=== PATIENT | male | born 1970 | race Caucasian/White ===

== ENCOUNTER 2018-01-21 08:51 | Inpatient (IN) | payer OTHER, SELFPAY ==
[2018-01-21] MEDS ORDERED: Lorazepam 2 MG/ML VIAL ONE ×2 (09:15→10:56)
[2018-01-21] MEDS ORDERED: Mag-Al 1200 mg/1200 mg/30 ML UDCUP ONE (09:16)
[2018-01-21] MEDS ORDERED: Lidocaine Viscous Sol 2% 15 ml UD Cup ONE (09:16)
[2018-01-21] MEDS ORDERED: Multivitamins, Adult 10 ML, Thiamine HCl 100 MG, Folic Acid 1 MG in Dextrose 5 %-0.45 %... IV SCH (09:30)
[2018-01-21 09:35] LABS: #Lymphocytes 0.9 thou/uL (1.20-3.40); #Monocytes 0.4 thou/uL (0.11-0.59); #Neutrophils 8.7 thou/uL (1.40-6.50); %Basophils 0.2 % (0.0-1.0); %Eosinophils 0.1 % (0.0-10.0); %Lymphocytes 8.5 % (21.0-51.0); %Monocytes 3.8 % (0.0-10.0); %Neutrophils 87.3 % (42.0-75.0); Hemoglobin 12.9 g/dL (14.0-18.0); Mean Corpuscular Hemoglobin 29.2 pg (27.0-31.0); Mean Corpuscular Volume 88.5 fL (78.0-98.0); Mean Platelet Volume 9.2 fL (7.4-10.4); Platelet Count 136 thou/uL (130-400); RBC Distribution Width 15.9 % (11.5-14.5); Red Blood Cell (RBC) Count 4.42 mill/uL (4.70-6.10)
[2018-01-21 09:55] LABS: Band 40 % (5-11); Lymphocytes 11 % (21-51); MDiff Complete? YES; Metamyelocyte 3 % (0-0); Monocytes 3 % (0-10); Neutrophil 42 % (42-75); Stomatocytes MODERATE= 6-15 cells (100X) (0-1/hpf)
[2018-01-21 10:01] LABS: CKMB 6.3 ng/mL (0-6.6)
[2018-01-21 10:02] LABS: ALT (SGPT) 757 U/L (8-55); AST (SGOT) 2751 U/L (5-34); Albumin 3.8 g/dL (3.5-5.0); Alkaline Phosphatase 58 U/L (40-150); Anion Gap 35 mmol/L (10-20); BUN (Urea Nitrogen) 9 mg/dL (8.9-20.6); Bilirubin, Total 4.8 mg/dL (0.2-1.2); Calc. Creatinine Clearance 0 mL/min (70-130); Calcium 7.4 mg/dL (7.8-10.44); Carbon Dioxide 14 mmol/L (22-29); Chloride 83 mmol/L (98-107); Estimated GFR-MDRD 32; Globulin 3.5 g/dL (2.4-3.5); Glucose 169 mg/dL (70-105); Potassium 3.8 mmol/L (3.5-5.1); Protein, Total 7.3 g/dL (6.0-8.3); Sodium 128 mmol/L (136-145)
[2018-01-21 10:13] LABS: Lipase 4177 U/L (8-78)
[2018-01-21 10:23] LABS: Troponin I 0.379 ng/mL (< 0.028)
--- NOTE | 2018-01-21 10:31 | RAD ---
PORTABLE CHEST: Date: 01/21/18 HISTORY: Chest pain. FINDINGS: Lungs appear clear. No infiltrate identified. Heart and mediastinum unremarkable. IMPRESSION: No acute process. POS: [facility]
[2018-01-21] MEDS ORDERED: Piperacillin/Tazobactam 4.5 GM VIAL ONE (10:55)
--- NOTE | 2018-01-21 11:17 | CT ---
CT ABDOMEN AND PELVIS WITHOUT CONTRAST: Date: 01/21/18 Multiple axial tomograms obtained through abdomen and pelvis without IV enhancement. INDICATION: Abdominal pain. Periumbilical pain. No comparison exam. FINDINGS: Lung bases clear. Liver shows low attenuation suggesting hepatic steatosis. The spleen is unremarkable. Pancreas is abnormal. There is peripancreatic inflammatory change. No peripancreatic edema or pseudoc yst seen; however, the findings would suggest pancreatitis. There is evidence of mural thickening and surrounding inflammatory change involving the right colon a nd hepatic flexure. The small bowel loops appear normal. The adrenal glands and kidneys are unremarkable. No hydronephrosis. Urinary bladder unremarkable. Aorta normal caliber. IMPRESSION: Peripancreatic inflammatory change. Inflammatory changes are also seen in the upper mesentery and is especially prominent surrounding the hepatic flexure and right colon. Question mural thickening of th e right colon. Pancreatitis and colitis are considerations. Recommend correlation with pancreatic enz ymes and consider colonoscopy to further evaluate. POS: [facility]
[2018-01-21 12:55] VITALS: BMI 27.5
[2018-01-21] MEDS ORDERED: Lorazepam 2 MG/ML VIAL SLOW IVP PRN (13:44)
[2018-01-21] MEDS ORDERED: Ondansetron ODT 4 MG TAB SL PRN (13:45)
[2018-01-21] MEDS ORDERED: Sodium Chloride 0.9% 1,000 ML IV SCH (13:45)
[2018-01-21] MEDS ORDERED: Ondansetron HCl/PF 4 MG/2 ML Vial IVP PRN (13:45)
[2018-01-21] MEDS ORDERED: Acetaminophen 325 MG TAB PO PRN (13:45)
[2018-01-21 14:28] LABS: Lactic Acid 7.4 mmol/L (0.5-2.2)
[2018-01-21] MEDS: Sodium Chloride 0.9% 1,000 ML IV SCH ×2 (15:05→15:06)
[2018-01-21] MEDS: Multivitamins, Adult 10 ML, Folic Acid 1 MG, Thiamine HCl 100 MG in Dextrose 5 %-0.45 %... IV SCH (15:06)
[2018-01-21] MEDS: Fentanyl 100 MCG/2 ML VIAL SLOW IVP PRN ×3 (15:09→21:52)
[2018-01-21] MEDS: Nicotine 14 MG PATCH TD SCH (15:10)
[2018-01-21 15:28] LABS: Anion Gap 23 mmol/L (10-20); BUN (Urea Nitrogen) 10 mg/dL (8.9-20.6); Calc. Creatinine Clearance 46 mL/min (70-130); Carbon Dioxide 22 mmol/L (22-29); Chloride 89 mmol/L (98-107); Estimated GFR-MDRD 30; Glucose 175 mg/dL (70-105); Sodium 131 mmol/L (136-145)
[2018-01-21 15:30] LABS: Magnesium 0.9 mg/dL (1.6-2.6); Potassium 2.9 mmol/L (3.5-5.1)
[2018-01-21] MEDS ORDERED: Magnesium Sulfate 4 GM in Sodium Chloride 0.9% 250 ML 250 ML IVPB SCH (17:45)
[2018-01-21] MEDS: Potassium Chloride 40 MEQ in Sodium Chloride 0.9% 250 ML 250 ML IVPB SCH ×2 (18:22→21:52)
[2018-01-21] MEDS: Ondansetron HCl/PF 4 MG/2 ML Vial IVP PRN (19:48)
[2018-01-21] MEDS: Famotidine/PF 20 mg/2ml Vial SLOW IVP SCH (19:48)
[2018-01-21] MEDS: Lorazepam 2 MG/ML VIAL SLOW IVP PRN (19:49)
--- NOTE | 2018-01-21 20:59 | CON ---
DATE OF CONSULTATION: 01/21/2018 HISTORY OF PRESENT ILLNESS: Antwan Waddell is a 47-year-old gentleman from [place], [place]. 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 Had s everal day history of severe abdominal pain, nausea, and vomiting, vomited multiple times. He drinks at least a bottle of vodka on a regular basis, 5-6 drinks, drinking for the last 10 years. In the ER, he was found to have markedly elevated lipase. CT abdomen showing evidence of pancreatiti s and colitis. He is now in the MICU, reason for consultation. He denies any difficulty breathing, cough, wheezing or orthopnea. He denies any chills or sweats. Denies any melena or hematochezia. PAST MEDICAL HISTORY: Pertinent mainly for chronic pain, history of alcohol abuse. No history of di abetes. PAST SURGICAL HISTORY: Multiple lumbar fusions, cervical fusion, left knee, appendix, tonsillectomy. SOCIAL HISTORY: As noted, 5 drinks of vodka a day, equal to almost a bottle. No smoking, but chews tobacco. REVIEW OF SYSTEMS: Otherwise, 10-point negative. PHYSICAL EXAMINATION: GENERAL: He is tremulous, awake. VITAL SIGNS: Sats are 95 on room air, pulse 120, blood pressure . CHEST: Decreased breath, no wheezing. CARDIAC: Sinus tachycardia. ABDOMEN: Distended and tender. EXTREMITIES: Revealed no edema. LABORATORY DATA: Shows white count 10,000, ____, platelet 136. Big bandemia, 40 bands, 42 neutrophi ls. Creatinine is 2.2. Lactic acid is 10.6. His lipase was 4177. Chest x-ray was normal. Sodium 128. IMPRESSION: Acute pancreatitis secondary to alcohol abuse and renal failure, electrolyte imbalance, and chronic pain. PLAN: The patient needs IV hydration, fluids, n.p.o., GI consult. Empiric broad-spectrum antibiotic s. We will follow while in the MICU. Consultation note 70 minutes, of which 50 % in direct patient care.
[2018-01-22] MEDS: Fentanyl 100 MCG/2 ML VIAL SLOW IVP PRN ×4 (02:20→22:02)
[2018-01-22] MEDS: Lorazepam 2 MG/ML VIAL SLOW IVP PRN ×3 (02:43→12:15)
[2018-01-22 05:21] LABS: Band 45 % (5-11); Eosinophils 2 % (0-10); Hemoglobin 10.8 g/dL (14.0-18.0); Lymphocytes 8 % (21-51); MDiff Complete? YES; Mean Corpuscular HGB CONC 33.2 g/dL (32.0-36.0); Mean Corpuscular Hemoglobin 29.9 pg (27.0-31.0); Mean Platelet Volume 10.3 fL (7.4-10.4); Monocytes 1 % (0-10); Neutrophil 44 % (42-75); PLT Morphology Comment Appears Decreased; Platelet Count 78 thou/uL (130-400); Red Blood Cell (RBC) Count 3.62 mill/uL (4.70-6.10); Target Cells SLIGHT = 2-5 cells (100X) (0-1/hpf); White Blood Cell (WBC) Count 9.5 thou/uL (4.8-10.8)
[2018-01-22 05:39] LABS: ALT (SGPT) 402 U/L (8-55); AST (SGOT) 882 U/L (5-34); Albumin 3.2 g/dL (3.5-5.0); Alkaline Phosphatase 41 U/L (40-150); Anion Gap 13 mmol/L (10-20); BUN (Urea Nitrogen) 12 mg/dL (8.9-20.6); Bilirubin, Total 7.1 mg/dL (0.2-1.2); Calc. Creatinine Clearance 50 mL/min (70-130); Calcium 6.8 mg/dL (7.8-10.44); Carbon Dioxide 25 mmol/L (22-29); Cardiac Risk TEST NOT PERFORMED (Less than 4.5); Chloride 98 mmol/L (98-107); Cholesterol 102 mg/dl (< 200 Desired); Estimated GFR-MDRD 34; Globulin 2.2 g/dL (2.4-3.5); Glucose 152 mg/dL (70-105); HDL Cholesterol Less than 8 mg/dL (>60 Neg Risk); Lipase Greater than 1000 U/L (8-78); Potassium 3.3 mmol/L (3.5-5.1); Protein, Total 5.4 g/dL (6.0-8.3); Sodium 133 mmol/L (136-145); Triglycerides 178 mg/dL (Less than 150)
[2018-01-22] MEDS: Folic Acid 1 MG TAB PO SCH (08:39)
[2018-01-22] MEDS: Multivitamins, Adult 10 ML, Folic Acid 1 MG, Thiamine HCl 100 MG in Dextrose 5 %-0.45 %... IV SCH (08:40)
[2018-01-22] MEDS ORDERED: Diazepam 5 MG TAB PO SCH (08:45)
[2018-01-22] MEDS ORDERED: Thiamine HCl 200 MG/2 ML VIAL IM SCH (08:45)
--- NOTE | 2018-01-22 10:24 | PDOC.PN ---
- Subjective Encounter Start Date: 01/22/18 Encounter Start Time: 10:22 Sleeping. Sedated. - Objective Resuscitation Status: Resuscitation Status FULL:Full Resuscitation Vital Signs & Weight: Vital Signs (12 hours) Temp Pulse Resp BP BP Pulse Ox 01/22/18 07:26 99.9 F H 134 H 24 H 141/95 H 98 01/22/18 04:00 99.5 F 124 H 24 H 141/80 H 99 01/22/18 00:00 149/95 H 01/21/18 23:00 99.7 F H 136 H 22 H 149/95 H 97 Weight Weight 188 lb 9 oz I&O: 01/21/18 01/22/18 01/23/18 06:59 06:59 06:59 Intake Total 3270 Output Total 250 Balance 3020 Result Diagrams: 01/22/18 04:19 01/22/18 04:19 Phys Exam - Physical Examination Constitutional: NAD Sleeping. Not easily awakened (received bzd) Neck: no JVD Respiratory: no wheezing, no rales, no rhonchi, clear to auscultation bilateral Cardiovascular: RRR, no significant murmur Tachy Gastrointestinal: soft, no distention Musculoskeletal: no edema Sedated Skin: normal turgor Dx/Plan (1) Pancreatitis Code(s): K85.90 - ACUTE PANCREATITIS WITHOUT NECROSIS OR INFECTION, UNSP Status: Acute Plan: Continue supportive care. Has severe poor prognostic indicators (elevated troponin, elevated creatinine, acidosis). Consult GI. Comment: Severe (2) Alcohol withdrawal Code(s): F10.239 - ALCOHOL DEPENDENCE WITH WITHDRAWAL, UNSPECIFIED Status: Acute Plan: Started protocol. (3) NSTEMI (non-ST elevated myocardial infarction) Code(s): I21.4 - NON-ST ELEVATION (NSTEMI) MYOCARDIAL INFARCTION Status: Acute Plan: May be demand ischemia. Rechecking troponin now. May need to consult cardiology, but he is high risk for any interventions at this time. Echo. (4) Acute renal failure Status: Acute Plan: No history of renal insuff., but creat elevated. Very slightly improved. - Plan * Corrected calcium is normal. * As above.
[2018-01-22] MEDS ORDERED: Sodium Chloride 0.45% 1,000 ML IV SCH ×2 (10:45→12:15)
--- NOTE | 2018-01-22 13:20 | PRG ---
DATE OF SERVICE: 01/22/2018 OBJECTIVE: VITAL SIGNS: This morning, his temperature is 99.9, pulse is 130, respiratory rate 24, blood pressur e 141/95. GENERAL: He is awake, responsive. Denies difficulty breathing. CHEST: Decreased breath sounds, no wheezing. CARDIAC: Sinus tachycardia. ABDOMEN: Distended, soft. LABORATORY DATA: He still got a big left shift, 45 bands, 44 segs. White count 9000, H and H 10 and 32. Platelet count is 78, creatinine 2.1, BUN is 12. His AST is 2751 and is down to 882. ALT has decreased to 402. CK-MB is normal. Total CK is only 17 7. His lipase was decreased to 1000. IMPRESSION 1. Acute pancreatitis with big bandemia. 2. Renal failure. 3. Alcoholic hepatitis. PLAN: He may need empiric antibiotics for his pancreatitis, because of big left shift, may consider input from GI. Otherwise, supportive care. I agree with thiamine, folic acid, Valium. We will follow while in the IMCU.
[2018-01-22] MEDS: Sodium Chloride 0.9% 1,000 ML IV SCH ×4 (14:20→20:16)
[2018-01-22] MEDS: Nicotine 14 MG PATCH TD SCH (15:22)
--- NOTE | 2018-01-22 15:47 | CON ---
DATE OF CONSULTATION: 01/22/2018 REASON FOR CONSULTATION: Alcoholic hepatitis and acute pancreatitis. CONSULTING PHYSICIAN: Dr. Umair Ratliff. HISTORY OF PRESENT ILLNESS: The patient is a 47-year-old male with past medical history of alcohol a buse and PTSD presenting with complaints of abdominal pain. He states that he was in his usual state of health until approximately 4-5 days ago when he had the sudden onset of midepigastric/periumbilic al abdominal pain that was characterized as sharp/stabbing in nature, constant with waxing/waning sev erity. It would radiate to the left and right flank, and would reach a severity of 8/10. The pain w as worse with vomiting and increased physical activity, but better with structured exercise and place ment of a hot pad to the midepigastric region. His abdominal pain was also associated with increased nausea and vomiting with a minimal amount of hematemesis characterized primarily as blood within the mouth when he vomited, but not necessarily vomiting of blood. Otherwise, he denies any fevers, chil ls, odynophagia, dysphagia, weight loss, melena or hematochezia. Of note, he does endorse drinking approximately one bottle of vodka daily up until the onset of his a bdominal pain and has been doing this for around the last 10 years. REVIEW OF SYSTEMS: A 10-category review of systems was obtained with all responses negative except f or the pertinent positives as listed in the HPI. PAST MEDICAL HISTORY: As per HPI. PAST SURGICAL HISTORY: Multiple back surgeries, back and knee surgeries, back and neck surgeries, le ft knee surgery, appendectomy, tonsillectomy. FAMILY HISTORY: Denies any GI malignancies. SOCIAL HISTORY: Drinks approximately one bottle of vodka daily. Denies smoking tobacco, but does ch ew tobacco. Denies any illicit drug use. OUTPATIENT MEDICATION: Prazosin. ALLERGIES: SULFA. PHYSICAL EXAMINATION: VITAL SIGNS: Temperature 99.2, pulse 140, blood pressure 159/108, respiratory rate 28, saturating 96 % on room air. GENERAL: The patient is lying in bed in no acute distress, was somnolent during the course of the in terview. Alert and oriented x3. HEENT: Neck is supple. No JVD noted. CARDIOVASCULAR: Tachycardic rate, but regular rhythm. No discernible murmurs, gallops or rubs. RESPIRATORY: Clear to auscultation bilaterally with no discernible wheezes or rales. ABDOMEN: Normoactive bowel sounds, soft, but with some guarding. Mild distention with tympany to pe rcussion. Tenderness to palpation in the midepigastric, periumbilical and right mid abdominal quadra nts. EXTREMITIES: No cyanosis, clubbing or edema. LABORATORY DATA: CBC with white blood cell count of 9.5, hemoglobin 10.8, hematocrit 32.6, platelets 78. Chemistry with sodium 133, potassium 3.3, chloride 98, CO2 25, BUN 12, creatinine 2.11, glucose 152, AST 882, ALT 402, alkaline phosphatase 41, total bilirubin 7.1, albumin 3.2, lipase 4177, trigl ycerides 178, her creatine kinase 177, troponins 0.379, BISAP score of 2. IMAGING DATA: CT of the abdomen and pelvis showed probable hepatic steatosis with low attenuation of the liver, normal spleen, but there was also peripancreatic inflammatory change, but no associated p eripancreatic edema or pseudocyst formation. There was also mural thickening and surrounding inflamm atory change involving the right colon and hepatic flexure. ASSESSMENT AND PLAN: The patient is a 47-year-old male with past medical history of alcohol abuse an d PTSD, presenting with acute alcoholic hepatitis and acute pancreatitis. ALCOHOLIC HEPATITIS: The patient is presenting with a longstanding history of alcohol abuse, drinkin g approximately one bottle of vodka daily for the last 10 years. Upon admission, his liver function tests are consistent with alcoholic hepatitis with AST predominance over ALT in 2:1 distribution. Th is is also associated with an increased total bilirubin of 7.1 indicating some liver dysfunction. Ba sed on his current elevation, I would characterize his alcoholic hepatitis as mild to moderate; howev er, with recent studies showing lack of efficacy with either pentoxifylline or steroid administration , conservative management is more appropriate at this particular point in time. RECOMMENDATIONS: 1. We would continue to trend LFTs daily as well as INR for changes in liver function. 2. Continue to monitor for signs of hepatic encephalopathy which may be a harbinger of worsening hep atic function. 3. Continue to monitor conservatively with IV fluid administration. PANCREATITIS: The patient is presenting with acute onset of midepigastric/periumbilical abdominal pa in approximately 4-5 days ago. This pain is characterized as a sharp/stabbing type pain that is cons tant with waxing/waning severity, radiates to his bilateral abdominal flanks and would reach a severi ty of 8/10. Currently, he states his pain is under much better control with administration of IV med ications. Upon admission to the [facility] ER, he has imaging consistent with acute pancreatitis a s well as a significantly elevated lipase at 4177 consistent with his diagnosis. At this time per BI SAP score, the severity of his pancreatitis could be considered mild to moderate especially in light of end organ damage as evidenced by an elevated creatinine. At this time, he needs aggressive fluid administration for prevention of inflammatory sciatic lines causing a fulminant cascade and ending in third spacing of fluid and kidney failure and/or fulminant hepatic failure. RECOMMENDATIONS: 1. Would place patient on normal saline at 250 mL per hour over the next 8 hours, then decrease to 2 00 mL per hour for the next 16 hours as part of IV fluid resuscitation. 2. Continue to monitor clinically for signs of third spacing and/or hypotension. 3. Would keep patient n.p.o. for now, but would consider advancing diet within the next 24-48 hours. 4. Pain control per primary team. 5. I agree with placing the patient on withdrawal protocol given his extensive alcohol abuse in the past. We will continue to monitor. Please call with any questions.
[2018-01-22] MEDS: Ondansetron ODT 4 MG TAB PO PRN (18:03)
[2018-01-22] MEDS: Diazepam 5 MG TAB PO PRN (20:15)
[2018-01-22] MEDS: Famotidine/PF 20 mg/2ml Vial SLOW IVP SCH (20:15)
[2018-01-23] MEDS: Diazepam 5 MG TAB PO PRN (00:05)
[2018-01-23] MEDS: Sodium Chloride 0.9% 1,000 ML IV SCH ×5 (01:32→19:54)
[2018-01-23] MEDS ORDERED: Diazepam 5 MG TAB PO PRN (04:00)
[2018-01-23 05:27] LABS: INR-International Normal Ratio 1.3; Prothrombin Time 16.6 SEC (12.0-14.7)
[2018-01-23 06:03] LABS: Band 33 % (5-11); Hemoglobin 9.7 g/dL (14.0-18.0); Lymphocytes 11 % (21-51); MDiff Complete? YES; Mean Corpuscular HGB CONC 32.8 g/dL (32.0-36.0); Mean Corpuscular Hemoglobin 29.6 pg (27.0-31.0); Mean Corpuscular Volume 90.3 fL (78.0-98.0); Mean Platelet Volume 9.9 fL (7.4-10.4); Monocytes 3 % (0-10); Neutrophil 53 % (42-75); PLT Morphology Comment Appears Decreased; Platelet Count 92 thou/uL (130-400); Red Blood Cell (RBC) Count 3.27 mill/uL (4.70-6.10); White Blood Cell (WBC) Count 9.4 thou/uL (4.8-10.8)
[2018-01-23 06:07] LABS: ALT (SGPT) 247 U/L (8-55); AST (SGOT) 362 U/L (5-34); Albumin 2.9 g/dL (3.5-5.0); Alkaline Phosphatase 133 U/L (40-150); Anion Gap 11 mmol/L (10-20); BUN (Urea Nitrogen) 8 mg/dL (8.9-20.6); Bilirubin, Total 8.4 mg/dL (0.2-1.2); Calc. Creatinine Clearance 107 mL/min (70-130); Calcium 6.9 mg/dL (7.8-10.44); Carbon Dioxide 30 mmol/L (22-29); Chloride 100 mmol/L (98-107); Estimated GFR-MDRD 77; Globulin 2.1 g/dL (2.4-3.5); Glucose 86 mg/dL (70-105); Sodium 138 mmol/L (136-145)
[2018-01-23] MEDS: Fentanyl 100 MCG/2 ML VIAL SLOW IVP PRN ×6 (08:02→23:25)
[2018-01-23] MEDS: Enoxaparin Sodium 40 MG/0.4 ML SYRINGE SC SCH (09:10)
[2018-01-23] MEDS: Ondansetron HCl/PF 4 MG/2 ML Vial IVP PRN ×2 (09:10→15:22)
[2018-01-23] MEDS: Folic Acid 1 MG TAB PO SCH (09:10)
[2018-01-23] MEDS: Magnesium Oxide 400 MG TAB PO SCH (09:10)
[2018-01-23] MEDS: Lorazepam 2 MG/ML VIAL SLOW IVP PRN ×3 (09:12→22:09)
--- NOTE | 2018-01-23 09:33 | PRG ---
DATE OF SERVICE: 01/23/2018 This morning, the patient is awake, alert, responsive. He is better, less abdominal pain. He was le ss tachycardic. PHYSICAL EXAMINATION: VITAL SIGNS: Temperature 99, pulse 112, respirations 24, blood pressure 145/102. CHEST: Chest reveals decreased breath sounds, no wheezing. CARDIAC: Normal S1, S2, no gallops. ABDOMEN: Soft, no masses. LABORATORY: His AST has decreased to 362. White count 9000, H&H 9 and 27, platelet count is 292. IMPRESSION: 1. Alcohol hepatitis. 2. Pancreatitis. PLAN: Continue supportive care. GI on board. He is NPO. We will follow while in the IMCU.
--- NOTE | 2018-01-23 10:00 | PRG ---
DATE OF SERVICE: 01/23/2018 REASON FOR CONSULTATION: Alcoholic hepatitis and acute pancreatitis SUBJECTIVE: The patient did well overnight with no acute events or problems. This morning he states that he continues to have midepigastric abdominal pain that is unchanged from yesterday. He has not had a bowel movement since he has been here in the hospital and is getting a little hungry as part o f treatment. Currently, denies any nausea, vomiting, fevers, chills or GI bleeding. OBJECTIVE: VITAL SIGNS: Temperature 99.6, pulse 112, blood pressure 145/102, respiratory rate 24, satting 98% o n room air. GENERAL: The patient lying in bed in no acute distress. He is alert and oriented x4, although speec h is somewhat delayed and quiet. CARDIOVASCULAR: Tachycardic rate, but regular rhythm. RESPIRATORY: Clear to auscultation bilaterally. ABDOMEN: Normoactive bowel sounds, soft, minimal distention with tympany to percussion. Tenderness to palpation in the midepigastric and periumbilical regions. LABORATORY DATA: CBC with a white blood cell count of 9.4, hemoglobin 9.7, hematocrit 29.5, platelet s 92. Chemistry with a sodium 138, potassium is 3, chloride 100, CO2 30, BUN 8, creatinine 1.03. IN R 1.3, AST 362, ALT 247, alkaline phosphatase 133, total bilirubin 8.4, albumin 2.9. IMAGING DATA: No current GI imaging is available for review. ASSESSMENT AND PLAN: The patient is a 47-year-old male with past medical history of alcohol abuse an d post-traumatic stress disorder, presenting with acute alcoholic hepatitis and acute pancreatitis. Alcoholic hepatitis. The patient is presenting with a longstanding history of alcohol abuse, drinking approximately one diogenes ttle of vodka daily for the last 10 years. On admission, he was noted to have a significantly high A ST and ALT in primarily a 2:1 distribution consistent with alcoholic hepatitis. He does continue to have an elevated total bilirubin as well indicating liver dysfunction; however, on review of his labs today, his AST and ALT have decreased significantly and I hope that his total bilirubin will be foll owing shortly thereafter. At this time, I would characterize his alcoholic hepatitis as mild to mode rate and will continue more conservative management at this time. RECOMMENDATIONS: 1. Would continue to trend LFTs daily as well as INR for assessment of hepatic function. 2. Continue to monitor for any signs of hepatic encephalopathy which may be a harbinger of worsening hepatic function. 3. Would hold on administration of steroids or pentoxifylline given their lack of efficacy on carmen turlatisha. Pancreatitis. The patient is presenting with an acute onset of midepigastric/periumbilical abdominal pain for the 4 -5 days prior to admission. On admission, he had imaging consistent with acute pancreatitis as well as a significantly elevated lipase at 4177 consistent with this diagnosis. Currently, he has respond ed well to IV fluid resuscitation receiving approximately 3-4 liters within the last 24 hours, as thomas denced by improvement in both his BUN and creatinine, continued IV fluid administration is indicated, but may be decreased for fear of fluid overload and in light of recent NSTEMI. RECOMMENDATIONS: 1. We will decrease the patient to normal saline at 150 mL per hour as part of IV fluid resuscitatio n for acute pancreatitis. 2. Keep the patient n.p.o. for now, but would consider advancing his diet to a clear liquid diet wit hin the next 24 hours. 3. Pain control per primary team. 4. Would continue alcohol withdrawal protocol given his significant alcohol abuse in the past. We will continue to follow. Please call with any questions.
[2018-01-23] MEDS: Multivitamins, Adult 10 ML, Folic Acid 1 MG, Thiamine HCl 100 MG in Dextrose 5 %-0.45 %... IV SCH (11:01)
[2018-01-23] MEDS: Famotidine/PF 20 mg/2ml Vial SLOW IVP SCH (20:22)
--- NOTE | 2018-01-23 21:44 | PDOC.PN ---
- Subjective Encounter Start Date: 01/23/18 Encounter Start Time: 14:00 PAtient is s4en today, along with Family memebers at Bedside, pt admitted with Alcohol intoxication with Acute pancreatitis, persistant pain 9/10 intesity on fentanyl - Objective Resuscitation Status: Resuscitation Status FULL:Full Resuscitation MAR Reviewed: Yes Vital Signs & Weight: Vital Signs (12 hours) Temp Pulse Resp BP Pulse Ox 01/23/18 20:00 99.6 F 107 H 20 137/84 98 01/23/18 19:50 101.0 F H 127 H 15 143/91 H 97 01/23/18 15:27 99.0 F 107 H 20 152/102 H 99 01/23/18 11:31 100.2 F H 12 L 21 H 144/100 H 99 Weight Weight 194 lb 7 oz I&O: 01/22/18 01/23/18 01/24/18 06:59 06:59 06:59 Intake Total 3270 4783.0 Output Total 250 2100 2775 Balance 3020 2683.0 -2775 Result Diagrams: 01/23/18 04:30 01/23/18 04:30 Radiology Reviewed by me: Yes EKG Reviewed by me: Yes Phys Exam - Physical Examination HEENT: PERRLA, moist MMs Neck: no nodes, no JVD Respiratory: no wheezing, no rales Cardiovascular: RRR, no significant murmur Gastrointestinal: positive bowel sounds Tender Abdomen generalized. No guarding Musculoskeletal: no edema, pulses present Neurological: non-focal, normal sensation Psychiatric: normal affect, A&O x 3 Skin: no rash, normal turgor Dx/Plan (1) Sepsis Code(s): A41.9 - SEPSIS, UNSPECIFIED ORGANISM Status: Acute Comment: Will continue to Monitro, pt is Having fevers, Abdominal pain, GI is Following, if persistant will plan to evalaute the Gallbladder. (2) Moderate dehydration Code(s): E86.0 - DEHYDRATION Status: Acute Comment: Will continue with IV fluids. 125ml/hr (3) Acute renal failure Status: Acute Comment: Likely from Dehydration or vomitings. Now Improving with IV fluids (4) Alcohol withdrawal Code(s): F10.239 - ALCOHOL DEPENDENCE WITH WITHDRAWAL, UNSPECIFIED Status: Acute Comment: WIll closley Monitor for Withdrawls with Ativan (5) Pancreatitis Code(s): K85.90 - ACUTE PANCREATITIS WITHOUT NECROSIS OR INFECTION, UNSP Status: Acute Comment: Severe, Likely from Alcohol - Plan * . Review of Systems - Review of Systems Constitutional: negative: fever, chills, sweats, weakness, malaise, other Eyes: negative: Pain, Vision Change, Conjunctivae Inflammation, Eyelid Inflammation, Redness, Other ENT: negative: Ear Pain, Ear Discharge, Nose Pain, Nose Discharge, Nose Congestion, Mouth Pain, Mouth Swelling, Throat Pain, Throat Swelling, Other Respiratory: negative: Cough, Dry, Shortness of Breath, Hemoptysis, SOB with Excertion, Pleuritic Pain, Sputum, Wheezing Cardiovascular: negative: chest pain, palpitations, orthopnea, paroxysmal nocturnal dyspnea, edema, light headedness, other Gastrointestinal: Nausea, Abdominal Pain, Constipation Genitourinary: negative: Dysuria, Frequency, Incontinence, Hematuria, Retention , Other Musculoskeletal: negative: Neck Pain, Shoulder Pain, Arm Pain, Back Pain, Hand Pain, Leg Pain, Foot Pain, Other Skin: negative: Rash, Lesions, Freddy, Bruising, Other - Medications/Allergies Allergies/Adverse Reactions: Allergies Allergy/AdvReac Type Severity Reaction Status Date / Time Sulfa (Sulfonamide Allergy Intermediate Rash Verified 01/21/18 09:25 Antibiotics) Medications: Current Medications Diazepam (Valium) 5 mg PO Q4H PRN PRN Reason: FOR ASE 10 OR GREATER Enoxaparin Sodium (Lovenox) 40 mg SC 0900 [facility] Last Admin: 01/23/18 09:10 Dose: 40 mg Famotidine (Pepcid) 20 mg SLOW IVP 2100 [facility] Last Admin: 01/23/18 20:22 Dose: 20 mg Fentanyl (Sublimaze) 25 mcg SLOW IVP Q2H PRN PRN Reason: Severe Pain (7-10) Last Admin: 01/23/18 19:37 Dose: 25 mcg Folic Acid (Folvite) 1 mg PO DAILY [facility] Last Admin: 01/23/18 09:10 Dose: 1 mg Multivitamins 10 ml/ Folic Acid 1 mg/ Thiamine HCl 100 mg / Dextrose/Sodium Chloride 1,011.2 mls @ 150 mls/hr IV 0900 [facility] Last Admin: 01/23/18 11:01 Dose: 1,011.2 mls Sodium Chloride (Normal Saline 0.9%) 1,000 mls @ 150 mls/hr IV .Q6H40M [facility] Last Admin: 01/23/18 19:54 Dose: 1,000 mls Lorazepam (Ativan) 1 mg SLOW IVP Q4H PRN PRN Reason: Anxiety/Agitation Last Admin: 01/23/18 13:15 Dose: 1 mg Magnesium Oxide (Magnesium Oxide) 400 mg PO DAILY [facility] Last Admin: 01/23/18 09:10 Dose: 400 mg Ondansetron HCl (Zofran Odt) 4 mg PO Q6H PRN PRN Reason: Nausea/Vomiting Last Admin: 01/22/18 18:03 Dose: 4 mg Ondansetron HCl (Zofran) 4 mg IVP Q6H PRN PRN Reason: Nausea/Vomiting Last Admin: 01/23/18 15:22 Dose: 4 mg Sodium Chloride (Flush - Normal Saline) 10 ml IVF Q12HR [facility] Last Admin: 01/23/18 20:22 Dose: 10 ml Sodium Chloride (Flush - Normal Saline) 10 ml IVF PRN PRN PRN Reason: Saline Flush Thiamine HCl (Thiamine) 100 mg PO DAILY [facility] Last Admin: 01/23/18 09:10 Dose: 100 mg
[2018-01-24] MEDS: Fentanyl 100 MCG/2 ML VIAL SLOW IVP PRN ×4 (02:52→12:17)
[2018-01-24] MEDS: Ondansetron HCl/PF 4 MG/2 ML Vial IVP PRN ×3 (03:02→19:15)
[2018-01-24] MEDS: Sodium Chloride 0.9% 1,000 ML IV SCH ×3 (03:13→19:15)
[2018-01-24] MEDS ORDERED: Baclofen 10 MG TAB PO PRN (08:12)
[2018-01-24] MEDS: Folic Acid 1 MG TAB PO SCH (08:30)
[2018-01-24] MEDS: Magnesium Oxide 400 MG TAB PO SCH (08:30)
[2018-01-24 08:31] LABS: ALT (SGPT) 163 U/L (8-55); AST (SGOT) 155 U/L (5-34); Albumin 2.8 g/dL (3.5-5.0); Alkaline Phosphatase 225 U/L (40-150); Anion Gap 13 mmol/L (10-20); BUN (Urea Nitrogen) 6 mg/dL (8.9-20.6); Bilirubin, Total 5.4 mg/dL (0.2-1.2); Calc. Creatinine Clearance 155 mL/min (70-130); Calcium 6.9 mg/dL (7.8-10.44); Carbon Dioxide 28 mmol/L (22-29); Chloride 101 mmol/L (98-107); Estimated GFR-MDRD Greater than 90; Globulin 2.6 g/dL (2.4-3.5); Glucose 86 mg/dL (70-105); Protein, Total 5.4 g/dL (6.0-8.3); Sodium 139 mmol/L (136-145)
[2018-01-24] MEDS: Enoxaparin Sodium 40 MG/0.4 ML SYRINGE SC SCH (08:31)
--- NOTE | 2018-01-24 08:40 | PRG ---
DATE OF SERVICE: 01/24/2018 REASON FOR CONSULTATION: Alcoholic hepatitis and acute pancreatitis. SUBJECTIVE: The patient states that he had increased pain yesterday despite as needed use of IV fent anyl. This morning he says that his pain continues to give him significant discomfort primarily with in the mid epigastric region and radiating to the entire generalized abdomen. He also continues to h ave hiccups which he states further exacerbates his pain. He is getting more hungry and is amenable to attempting to eat some food later on today. He does have some mild nausea associated with increas ed abdominal pain and the hiccups, but does not have any actual emesis. He did have a solid bowel mo vement yesterday with no difficulty with defecation. Currently, denies any vomiting or GI bleeding. Of note, he did complain of subjective fevers yesterday with a T-max of 101 yesterday. OBJECTIVE: VITAL SIGNS: Temperature 98.7, pulse 122, blood pressure 149/102, respiratory rate 18, satting 97% o n room air. GENERAL: The patient is lying in bed in no acute distress. He is alert and oriented x4. CARDIOVASCULAR: Tachycardic rate, but regular rhythm. RESPIRATORY: Clear to auscultation bilaterally. ABDOMEN: Normoactive bowel sounds, soft, nondistended. Tenderness to palpation in all abdominal didi drants. EXTREMITIES: No cyanosis, clubbing or edema. LABORATORY DATA: No current studies were available for review at the time of this dictation. IMAGING STUDIES: No current GI imaging studies are available for review. ASSESSMENT AND PLAN: The patient is a 47-year-old male with past medical history of alcohol abuse an d posttraumatic stress disorder presenting with acute alcoholic hepatitis and acute pancreatitis. Alcoholic hepatitis. The patient initially presenting with a longstanding history of alcohol abuse, drinking approximately one bottle of vodka daily for the last 10 years. On admission, he was noted t o have significantly elevated transaminases in 2:1 distribution consistent with alcoholic hepatitis. He did also have elevated total bilirubin, indicating possible liver dysfunction. He did have down trending labs yesterday indicative of response to treatment, but no labs are available for review lala pelaez. RECOMMENDATIONS: 1. Would continue to trend LFTs daily as well as INR for assessment of hepatic function. I will dra best a comprehensive metabolic profile at this time to ascertain today's liver function. 2. Continue to monitor for signs of hepatic encephalopathy which may be a harbinger of worsening hep atic function. 3. We will continue to hold on steroids or pentoxifylline given the lack of efficacy in literature s tudies. 4. Agree with placing the patient on alcohol withdrawal protocol given his increase in the above sym ptoms. Pancreatitis. The patient is presenting with acute onset of mid epigastric/periumbilical abdominal pain 4-5 days pr ior to admission. On admission, he had imaging consistent with acute pancreatitis as well as signifi cantly elevated lipase at 4177, consistent with the diagnosis. He was responding well to IV fluid re suscitation with both his BUN and creatinine returning to normal. However, over the last 24 hours he has been having subjective fevers and a T-max of 101, which may be indicative of infective pancreati tis. If these fevers continue he may need further evaluation for infective pancreatitis. RECOMMENDATIONS: 1. Would continue the patient on normal saline at 150 mL per hour as part of IV fluid resuscitation for acute pancreatitis. 2. Would advance the patient's diet to clear liquids and assess for tolerance. 3. We would consult Anesthesia Service for possible CHILDREN LIBRARIAN pump for adequate pain management in acute p ancreatitis. 4. If the patient continues to have fevers, I would reimage his belly with a CT abdomen and pelvis l ooking for infected pancreatitis. If it is indicative of infective pancreatitis, the patient will ne ed a CT guided biopsy of the region to further guide antibiotic therapy. We will continue to follow. Please call with any questions.
[2018-01-24 08:41] LABS: Potassium 2.8 mmol/L (3.5-5.1)
--- NOTE | 2018-01-24 08:55 | PRG ---
DATE OF SERVICE: 01/24/2018 This morning he is still having abdominal pain with nausea and vomiting. PHYSICAL EXAMINATION: VITAL SIGNS: Still tachycardic rate of 122, temperature 98, respiration rate 18, sats are 90% on suzan m air, blood pressure 149/102. CHEST: Chest revealed decreased breath sounds without any wheezing. CARDIAC: Sinus tachycardia. ABDOMEN: Distended, soft and tender. LABORATORY: His bilirubin is 5.4. His AST is 155, decreased. IMPRESSION: 1. Hepatitis. 2. Alcoholic pancreatitis. PLAN: Continue n.p.o., supportive care. PT and supportive care. I will follow.
[2018-01-24] MEDS: Potassium Chloride 20 MEQ in Premix Bag 1 BAG IVPB SCH ×2 (11:07→12:21)
[2018-01-24] MEDS: Multivitamins, Adult 10 ML, Folic Acid 1 MG, Thiamine HCl 100 MG in Dextrose 5 %-0.45 %... IV SCH (11:41)
--- NOTE | 2018-01-24 17:04 | PDOC.PN ---
- Subjective Encounter Start Date: 01/24/18 Encounter Start Time: 15:00 Patient is seen today, C/o severe abdnominal pain. He is Wanting Pain management to do Nerve block. - Objective Resuscitation Status: Resuscitation Status FULL:Full Resuscitation MAR Reviewed: Yes Vital Signs & Weight: Vital Signs (12 hours) Temp Pulse Resp BP BP Pulse Ox 01/24/18 16:00 152/104 H 01/24/18 15:24 98.2 F 121 H 13 152/104 H 97 01/24/18 12:00 148/100 H 01/24/18 11:29 97.9 F 114 H 20 148/100 H 93 L 01/24/18 08:00 149/102 H 01/24/18 07:48 98.7 F 122 H 18 99 01/24/18 07:39 98.7 F 122 H 18 149/102 H 97 Weight Weight 192 lb 12.8 oz I&O: 01/23/18 01/24/18 01/25/18 06:59 06:59 06:59 Intake Total 4783.0 2150 Output Total 2100 5675 2049 Balance 2683.0 -352 Result Diagrams: 01/23/18 04:30 01/24/18 08:00 Radiology Reviewed by me: Yes EKG Reviewed by me: Yes Phys Exam - Physical Examination HEENT: PERRLA, moist MMs Neck: no nodes, no JVD Respiratory: no wheezing, no rales Cardiovascular: RRR, no significant murmur Gastrointestinal: no distention, positive bowel sounds Musculoskeletal: no edema, pulses present Dx/Plan (1) Sepsis Code(s): A41.9 - SEPSIS, UNSPECIFIED ORGANISM Status: Acute Comment: Will continue to Monitro, pt is Having fevers, Abdominal pain, GI is Following, if persistant will plan to evalaute the Gallbladder. (2) Moderate dehydration Code(s): E86.0 - DEHYDRATION Status: Acute Comment: Will continue with IV fluids. 125ml/hr (3) Acute renal failure Status: Acute Comment: Likely from Dehydration or vomitings. Now Improving with IV fluids (4) Alcohol withdrawal Code(s): F10.239 - ALCOHOL DEPENDENCE WITH WITHDRAWAL, UNSPECIFIED Status: Acute Comment: [facility]ls with Ativan (5) Pancreatitis Code(s): K85.90 - ACUTE PANCREATITIS WITHOUT NECROSIS OR INFECTION, UNSP Status: Acute Comment: Severe, Likely from Alcohol (6) Elevated liver enzymes Code(s): R74.8 - ABNORMAL LEVELS OF OTHER SERUM ENZYMES Status: Acute Comment: Will do US Gallblader r/o Cholecystitis. - Plan cont current plan of care, continue antibiotics, PT/OT, social service assistant, incentive spirometry, DVT proph w/lovenox * . Review of Systems - Review of Systems Constitutional: weakness, malaise Eyes: negative: Pain, Vision Change, Conjunctivae Inflammation, Eyelid Inflammation, Redness, Other ENT: negative: Ear Pain, Ear Discharge, Nose Pain, Nose Discharge, Nose Congestion, Mouth Pain, Mouth Swelling, Throat Pain, Throat Swelling, Other Respiratory: negative: Cough, Dry, Shortness of Breath, Hemoptysis, SOB with Excertion, Pleuritic Pain, Sputum, Wheezing Cardiovascular: negative: chest pain, palpitations, orthopnea, paroxysmal nocturnal dyspnea, edema, light headedness, other Gastrointestinal: Nausea, Vomiting, Abdominal Pain Genitourinary: negative: Dysuria, Frequency, Incontinence, Hematuria, Retention , Other Musculoskeletal: negative: Neck Pain, Shoulder Pain, Arm Pain, Back Pain, Hand Pain, Leg Pain, Foot Pain, Other - Medications/Allergies Allergies/Adverse Reactions: Allergies Allergy/AdvReac Type Severity Reaction Status Date / Time Sulfa (Sulfonamide Allergy Intermediate Rash Verified 01/21/18 09:25 Antibiotics) Medications: Current Medications Baclofen (Lioresal) 10 mg PO BID PRN PRN Reason: Hiccups Last Admin: 01/24/18 11:07 Dose: 10 mg Diazepam (Valium) 5 mg PO Q4H PRN PRN Reason: FOR ASE 10 OR GREATER Enoxaparin Sodium (Lovenox) 40 mg SC 0900 [facility] Last Admin: 01/24/18 08:31 Dose: 40 mg Famotidine (Pepcid) 20 mg SLOW IVP 2100 [facility] Last Admin: 01/23/18 20:22 Dose: 20 mg Folic Acid (Folvite) 1 mg PO DAILY [facility] Last Admin: 01/24/18 08:30 Dose: 1 mg Multivitamins 10 ml/ Folic Acid 1 mg/ Thiamine HCl 100 mg / Dextrose/Sodium Chloride 1,011.2 mls @ 150 mls/hr IV 0900 [facility] Last Admin: 01/24/18 11:41 Dose: 1,011.2 mls Sodium Chloride (Normal Saline 0.9%) 1,000 mls @ 150 mls/hr IV .Q6H40M [facility] Last Admin: 01/24/18 11:07 Dose: 1,000 mls Lorazepam (Ativan) 1 mg SLOW IVP Q4H PRN PRN Reason: Anxiety/Agitation Last Admin: 01/23/18 22:09 Dose: 1 mg Magnesium Oxide (Magnesium Oxide) 400 mg PO DAILY [facility] Last Admin: 01/24/18 08:30 Dose: 400 mg Morphine Sulfate (Morphine) 3 mg SLOW IVP Q4H PRN PRN Reason: Severe Pain (7-10) Last Admin: 01/24/18 16:45 Dose: 3 mg Ondansetron HCl (Zofran Odt) 4 mg PO Q6H PRN PRN Reason: Nausea/Vomiting Last Admin: 01/22/18 18:03 Dose: 4 mg Ondansetron HCl (Zofran) 4 mg IVP Q6H PRN PRN Reason: Nausea/Vomiting Last Admin: 01/24/18 11:40 Dose: 4 mg Sodium Chloride (Flush - Normal Saline) 10 ml IVF Q12HR [facility] Last Admin: 01/24/18 08:31 Dose: 10 ml Sodium Chloride (Flush - Normal Saline) 10 ml IVF PRN PRN PRN Reason: Saline Flush Last Admin: 01/24/18 05:46 Dose: 10 ml Thiamine HCl (Thiamine) 100 mg PO DAILY [facility] Last Admin: 01/24/18 08:30 Dose: 100 mg
[2018-01-24] MEDS: Famotidine/PF 20 mg/2ml Vial SLOW IVP SCH (19:15)
--- NOTE | 2018-01-24 19:19 | ULT ---
ULTRASOUND GALLBLADDER RIGHT UPPER QUADRANT: 01/24/18 HISTORY: Abdominal pain. COMPARISON: CT from 01/21/18. FINDINGS: Real time ly scale and color evaluation of the right upper quadrant of the abdomen was performed. T here appears to be some fluid around the pancreatic head. The hepatic echotexture is coarsened. Liver is enlarged measuring over 21 cm. Gallbladder wall thickness is normal. Portal vein is patent. Antegrade flow. Common bile duct measures 6 mm. Normal gallbladder wall thickness. Right kidney measures 10.6 x 5.9 x 6.8 cm without mass, hydronephrosis or abnormal calcifications. IMPRESSION: 1. Common bile duct size is upper limits of normal without visualized choledocholithiasis. 2. Hepatomegaly with steatosis. 3. Small volume fluid around the pancreatic head suggesting pancreatitis. POS: PETERH
[2018-01-25] MEDS: Sodium Chloride 0.9% 1,000 ML IV SCH ×3 (02:05→20:00)
[2018-01-25] MEDS: Magnesium Oxide 400 MG TAB PO SCH (08:32)
[2018-01-25] MEDS: Lorazepam 2 MG/ML VIAL SLOW IVP PRN ×2 (08:32)
[2018-01-25] MEDS: Folic Acid 1 MG TAB PO SCH (08:32)
[2018-01-25] MEDS: Enoxaparin Sodium 40 MG/0.4 ML SYRINGE SC SCH (08:33)
[2018-01-25] MEDS: Multivitamins, Adult 10 ML, Folic Acid 1 MG, Thiamine HCl 100 MG in Dextrose 5 %-0.45 %... IV SCH (09:17)
[2018-01-25 09:26] LABS: Mean Corpuscular HGB CONC 31.4 g/dL (32.0-36.0); Mean Corpuscular Hemoglobin 28.7 pg (27.0-31.0); Mean Corpuscular Volume 91.3 fL (78.0-98.0); Mean Platelet Volume 9.2 fL (7.4-10.4); Platelet Count 160 thou/uL (130-400); RBC Distribution Width 17.1 % (11.5-14.5); Red Blood Cell (RBC) Count 3.49 mill/uL (4.70-6.10); White Blood Cell (WBC) Count 5.7 thou/uL (4.8-10.8)
[2018-01-25 09:36] LABS: ALT (SGPT) 125 U/L (8-55); AST (SGOT) 83 U/L (5-34); Alkaline Phosphatase 195 U/L (40-150); Anion Gap 11 mmol/L (10-20); BUN (Urea Nitrogen) 4 mg/dL (8.9-20.6); Bilirubin, Total 3.5 mg/dL (0.2-1.2); Calc. Creatinine Clearance 164 mL/min (70-130); Calcium 7.3 mg/dL (7.8-10.44); Carbon Dioxide 27 mmol/L (22-29); Chloride 103 mmol/L (98-107); Estimated GFR-MDRD Greater than 90; Globulin 2.8 g/dL (2.4-3.5); Glucose 83 mg/dL (70-105); Protein, Total 5.8 g/dL (6.0-8.3); Sodium 138 mmol/L (136-145)
[2018-01-25 09:40] LABS: Potassium 2.9 mmol/L (3.5-5.1)
[2018-01-25] MEDS ORDERED: Potassium Phosphate 15 MMOL in Sodium Chloride 0.9% 250 ML 250 ML IV PRN (09:54)
[2018-01-25] MEDS ORDERED: Potassium Chloride 20 MEQ TAB PO PRN (09:54)
[2018-01-25] MEDS ORDERED: Potassium Phosphate 12 MMOL in Sodium Chloride 0.9% 250 ML 250 ML IV PRN (09:54)
[2018-01-25] MEDS ORDERED: Potassium Chloride 40 MEQ in Premix Bag 1 BAG IVPB PRN (09:54)
[2018-01-25] MEDS ORDERED: Magnesium 2 GM/NS 0.9% 100 ML 2 GM in Premix Bag 1 BAG IVPB PRN (09:54)
[2018-01-25] MEDS ORDERED: Magnesium Oxide 400 MG TAB PO PRN ×2 (09:54)
[2018-01-25] MEDS ORDERED: Potassium Chloride 40 MEQ in Sodium Chloride 0.9% 250 ML 250 ML IVPB PRN (09:54)
[2018-01-25] MEDS ORDERED: CCU ELECTROLYTE REPLACEMENT PROTOCOL FS PRN (09:54)
[2018-01-25] MEDS ORDERED: Potassium Phosphate 9 MMOL in Sodium Chloride 0.9% 100 ML IVPB PRN (09:54)
[2018-01-25 11:19] LABS: Band 9 % (5-11); Eosinophils 2 % (0-10); Hypochromia SLIGHT = 6-15 cells (100X) (0-5/hpf); Lymphocytes 23 % (21-51); MDiff Complete? YES; Monocytes 13 % (0-10); Neutrophil 52 % (42-75); PLT Morphology Comment Appears Adequate; Polychromasia MODERATE = 3-4 cells (100X) (0-2/hpf); Stomatocytes MODERATE= 6-15 cells (100X) (0-1/hpf); Target Cells SLIGHT = 2-5 cells (100X) (0-1/hpf)
--- NOTE | 2018-01-25 13:14 | PDOC.PN ---
- Subjective Encounter Start Date: 01/25/18 Encounter Start Time: 11:45 Subjective: abd pain is better -: no nausea - Objective Resuscitation Status: Resuscitation Status FULL:Full Resuscitation MAR Reviewed: Yes Vital Signs & Weight: Vital Signs (12 hours) Temp Pulse Resp BP BP Pulse Ox 01/25/18 12:00 133/101 H 01/25/18 11:54 98.4 F 126 H 22 H 133/101 H 93 L 01/25/18 09:00 100 F H 128 H 18 98 01/25/18 07:37 100 F H 128 H 18 141/100 H 95 01/25/18 07:26 141/100 H 01/25/18 04:00 98.0 F 121 H 18 116/84 116/84 94 L Weight Weight 190 lb 1.6 oz I&O: 01/24/18 01/25/18 01/26/18 06:59 06:59 06:59 Intake Total 2150 5200 Output Total 5658 6611 Balance -0997 -7030 Result Diagrams: 01/25/18 08:57 01/25/18 08:57 Phys Exam - Physical Examination HEENT: PERRLA, sclera anicteric Neck: no JVD, supple Respiratory: no wheezing, no rales Cardiovascular: RRR, no significant murmur Gastrointestinal: soft, positive bowel sounds no rigidity or guarding Musculoskeletal: no edema, pulses present Neurological: non-focal, moves all 4 limbs Psychiatric: A&O x 3 Dx/Plan (1) Pancreatitis Code(s): K85.90 - ACUTE PANCREATITIS WITHOUT NECROSIS OR INFECTION, UNSP Status: Acute Qualifiers: Chronicity: acute Pancreatitis type: alcohol induced Acute pancreatitis complication: unspecified Qualified Code(s): K85.20 - Alcohol induced acute pancreatitis without necrosis or infection Comment: Severe, Likely from Alcohol (2) Alcoholic hepatitis Code(s): K70.10 - ALCOHOLIC HEPATITIS WITHOUT ASCITES Status: Acute Qualifiers: Ascites presence: unspecified Qualified Code(s): K70.10 - Alcoholic hepatitis without ascites (3) Hypokalemia Code(s): E87.6 - HYPOKALEMIA Status: Acute (4) Alcohol withdrawal Code(s): F10.239 - ALCOHOL DEPENDENCE WITH WITHDRAWAL, UNSPECIFIED Status: Acute Qualifiers: Complication of substance-induced condition: uncomplicated Qualified Code(s ): F10.230 - Alcohol dependence with withdrawal, uncomplicated - Plan bands have come down to 9 from 40% -: lft's are slowly trending down -: iv hydration, to amb in hallway -: maria luz carcamo tx to medical floor if ok with GI -: replace electrolytes, morphine prn * . Review of Systems - Medications/Allergies Allergies/Adverse Reactions: Allergies Allergy/AdvReac Type Severity Reaction Status Date / Time Sulfa (Sulfonamide Allergy Intermediate Rash Verified 01/21/18 09:25 Antibiotics) Medications: Current Medications Baclofen (Lioresal) 10 mg PO BID PRN PRN Reason: Hiccups Last Admin: 01/24/18 11:07 Dose: 10 mg Diazepam (Valium) 5 mg PO Q4H PRN PRN Reason: FOR ASE 10 OR GREATER Enoxaparin Sodium (Lovenox) 40 mg SC 0900 [facility] Last Admin: 01/25/18 08:33 Dose: 40 mg Famotidine (Pepcid) 20 mg SLOW IVP 2100 [facility] Last Admin: 01/24/18 19:15 Dose: 20 mg Folic Acid (Folvite) 1 mg PO DAILY [facility] Last Admin: 01/25/18 08:32 Dose: 1 mg Multivitamins 10 ml/ Folic Acid 1 mg/ Thiamine HCl 100 mg / Dextrose/Sodium Chloride 1,011.2 mls @ 150 mls/hr IV 0900 [facility] Last Admin: 01/25/18 09:17 Dose: 1,011.2 mls Sodium Chloride (Normal Saline 0.9%) 1,000 mls @ 150 mls/hr IV .Q6H40M [facility] Last Admin: 01/25/18 08:34 Dose: 1,000 mls Potassium Chloride 40 meq/ (Sodium Chloride) 270 mls @ 135 mls/hr IVPB ASDIR PRN PRN Reason: FOR SERUM K+ 2.5 - 3.5 Potassium Chloride 40 meq/ (Device) 100 mls @ 50 mls/hr IVPB ASDIR PRN PRN Reason: FOR SERUM K+ 2.5 - 3.5 Magnesium Sulfate 1 gm/ Sodium (Chloride) 102 mls @ 102 mls/hr IV PRN PRN PRN Reason: MAG LEVEL 1.4 - 2.0 Magnesium Sulfate 2 gm/ Device 100 mls @ 100 mls/hr IVPB ASDIR PRN PRN Reason: MAGNESIUM < 1.4 Potassium Phosphate 9 mmol/ (Sodium Chloride) 103 mls @ 25.75 mls/hr IVPB ASDIR PRN PRN Reason: Phosphate 1.0-1.8 Potassium Phosphate 12 mmol/ (Sodium Chloride) 254 mls @ 63.5 mls/hr IV ASDIR PRN PRN Reason: Serum phosphate 0.5-0.9 Potassium Phosphate 15 mmol/ (Sodium Chloride) 255 mls @ 63.75 mls/hr IV ASDIR PRN PRN Reason: Serum Phos < 0.5 Lorazepam (Ativan) 1 mg SLOW IVP Q4H PRN PRN Reason: Anxiety/Agitation Last Admin: 01/25/18 08:32 Dose: 1 mg Magnesium Oxide (Magnesium Oxide) 400 mg PO DAILY [facility] Last Admin: 01/25/18 08:32 Dose: 400 mg Magnesium Oxide (Magnesium Oxide) 400 mg PO BIDPRN PRN PRN Reason: FOR SERUM MAG 1.4 - 2.0 Magnesium Oxide (Magnesium Oxide) 800 mg PO PRN PRN PRN Reason: FOR SERUM MAG < 1.4 Miscellaneous Medication (Phos-Nak) 1 pkt PO TIDPRN PRN PRN Reason: FOR PHOS LEVEL 1.0 - 1.8 Miscellaneous Medication (Phos-Nak) 2 pkt PO TIDPRN PRN PRN Reason: FOR PHOS LEVEL 0.5 - 1.0 Morphine Sulfate (Morphine) 3 mg SLOW IVP Q4H PRN PRN Reason: Severe Pain (7-10) Last Admin: 01/25/18 12:15 Dose: 3 mg Ccu Electrolyte (Replacement Protocol) 0 each FS PRN PRN PRN Reason: FOR ELECTROLYTE REPLACEMENT Ondansetron HCl (Zofran Odt) 4 mg PO Q6H PRN PRN Reason: Nausea/Vomiting Last Admin: 01/22/18 18:03 Dose: 4 mg Ondansetron HCl (Zofran) 4 mg IVP Q6H PRN PRN Reason: Nausea/Vomiting Last Admin: 01/24/18 19:15 Dose: 4 mg Potassium Chloride (K-Dur) 40 meq PO ASDIR PRN PRN Reason: FOR SERUM K+ 2.5 - 3.5 Potassium Chloride (Klor-Con) 40 meq PER TUBE ASDIR PRN PRN Reason: FOR SERUM K+ 2.5-3.5 Sodium Chloride (Flush - Normal Saline) 10 ml IVF Q12HR [facility] Last Admin: 01/25/18 08:34 Dose: 10 ml Sodium Chloride (Flush - Normal Saline) 10 ml IVF PRN PRN PRN Reason: Saline Flush Last Admin: 01/24/18 05:46 Dose: 10 ml Thiamine HCl (Thiamine) 100 mg PO DAILY [facility] Last Admin: 01/25/18 08:32 Dose: 100 mg
[2018-01-25 14:33] LABS: Iron 11 ug/dL (65-175); Iron Binding Capacity, Total 238 mcg/dL (261-462)
[2018-01-25 14:54] LABS: HBCM Index 0.07 S/CO (0-0.79); HBSAg Index 0.21 S/CO (0-0.99); Hep A IgM AB Non-Reactive (NonReactive); Hep A IgM S/CO 0.14 S/CO (0-0.79); Hep B Surf Ag Non-Reactive S/CO (NonReactive); Hep C IgG Ab Non-Reactive (NonReactive); Hep C Index 0.18 S/CO (0-0.79); Hepatitis B Core IGM Abs Non-Reactive (NonReactive)
[2018-01-25] MEDS: Potassium Chloride 20 MEQ in Premix Bag 1 BAG IVPB SCH ×2 (14:54→16:57)
[2018-01-25] MEDS: Ondansetron ODT 4 MG TAB PO PRN (16:09)
[2018-01-25 17:04] LABS: EliA Vaculitis New Method **** NEW METHOD ****; Mitochondrial Ab 0.8 U/mL (<4 Negative)
--- NOTE | 2018-01-25 17:21 | PRG ---
DATE OF SERVICE: 01/25/2018 SERVICE: Pulmonary Medicine. INTERVAL HISTORY: The patient is doing fine from a respiratory standpoint. He complains of 8/10 abd ominal discomfort. It is little better than it was on presentation. That being said, in the same se ntence, he is asking for real food. He denies any current chest pain, nausea, vomiting, fevers or ch ills. He is not coughing. He is not short of breath. There were no overnight events. PHYSICAL EXAMINATION: VITAL SIGNS: Afebrile, pulse 126, blood pressure 133/101, respirations 22, saturation 93% on room ai r. GENERAL: The patient is awake, alert, in no apparent distress. LUNGS: Decent air entry. Dependent crackles are present. HEART: Tachycardic. Regular. ABDOMEN: Distended. There is diffuse tenderness to palpation. I do not appreciate any rebound. Th ere is no guarding. Bowel sounds are active. GENITOURINARY: Gifford catheter in place. NEUROLOGIC: Grossly nonfocal. LABORATORY DATA: WBC 5.7, hemoglobin 10.0, platelets 160,000 and rebounding nicely. Neutrophil coun t is down trending. Band count is also improved. INR 1.3. Potassium 2.9. Basic metabolic profile is otherwise unremarkable. AST and ALT are both down trending, alkaline phosphatase 195. Total bili varner is also down trending, calcium 7.3 and improving. Blood cultures x2 are unremarkable. IMAGING: Abdominal ultrasound demonstrates a common bile duct is in the upper limits of normal, with out visualized choledocholithiasis. Hepatomegaly is present with steatosis. Small volume around the pancreatic head suggesting pancreatitis. ASSESSMENT: 1. Acute pancreatitis. 2. Alcohol abuse. 3. Hepatitis, DISCUSSION AND PLAN: We will focus on mobilizing the patient to touch more. Potassium will be repla marlen. I will check a magnesium and phosphorus with tomorrow morning's laboratories. I will advance h is diet cautiously. Pulmonary Critical Care will continue to follow while the patient remains in [facility] location.
--- NOTE | 2018-01-25 17:22 | PRG ---
DATE OF SERVICE: 01/25/2018 SUBJECTIVE: Mr. Waddell continues to have pretty severe epigastric pain, however, it is better than when he came in. He is kept down some clear liquids today. He had a normal bowel movement today. OBJECTIVE: VITAL SIGNS: Temperature today is 98.4, had no further fever above 100 since midnight 2 nights ago. LUNGS: Clear to auscultation bilaterally. HEART: Regular rate and rhythm. ABDOMEN: Soft, diffusely tender. Bowel sounds are active. EXTREMITIES: No lower extremity edema. IMPRESSION: 1. Acute alcoholic pancreatitis, slowly symptomatically improving. 2. Alcoholic hepatitis. It is atypical to see the transaminases up in the thousands with alcoholic hepatitis alone. He may have had an additional component of ischemic changes that injury assoc iated with the severe dehydration with the pancreatitis. He has not taken any Tylenol in the last fe w weeks. I will check viral hepatitis screen and autoimmune markers for completeness sake that his t ransaminases are rapidly improving and the bilirubin is trending down. RECOMMENDATIONS: We will continue to follow trend of his labs and continue with supportive care with IV fluids for the pancreatitis. In light of the severity of the ongoing pain and nausea, we will ho ld off advancing the diet beyond clear liquids for now.
[2018-01-25] MEDS: Famotidine 20 MG TAB PO SCH (20:00)
[2018-01-26] MEDS: Lorazepam 2 MG/ML VIAL SLOW IVP PRN ×5 (00:32→20:44)
[2018-01-26] MEDS: Sodium Chloride 0.9% 1,000 ML IV SCH ×4 (04:36→22:24)
[2018-01-26 05:06] LABS: INR-International Normal Ratio 1.1; Prothrombin Time 14.1 SEC (12.0-14.7)
[2018-01-26 05:19] LABS: ALT (SGPT) 127 U/L (8-55); AST (SGOT) 171 U/L (5-34); Alkaline Phosphatase 263 U/L (40-150); Anion Gap 10 mmol/L (10-20); BUN (Urea Nitrogen) Less than 4 mg/dL (8.9-20.6); Bilirubin, Total 3.8 mg/dL (0.2-1.2); Calc. Creatinine Clearance 169 mL/min (70-130); Calcium 7.7 mg/dL (7.8-10.44); Carbon Dioxide 26 mmol/L (22-29); Chloride 105 mmol/L (98-107); Estimated GFR-MDRD Greater than 90; Globulin 2.8 g/dL (2.4-3.5); Glucose 122 mg/dL (70-105); Magnesium 1.4 mg/dL (1.6-2.6); Potassium 3.1 mmol/L (3.5-5.1); Protein, Total 5.8 g/dL (6.0-8.3); Sodium 138 mmol/L (136-145)
[2018-01-26 05:22] LABS: Phosphorus Less than 1.0 mg/dL (2.3-4.7)
[2018-01-26 05:35] LABS: Band 13 % (5-11); Eosinophils 2 % (0-10); Hemoglobin 10.2 g/dL (14.0-18.0); Lymphocytes 41 % (21-51); MDiff Complete? YES; Mean Corpuscular HGB CONC 32.6 g/dL (32.0-36.0); Mean Corpuscular Hemoglobin 29.8 pg (27.0-31.0); Mean Corpuscular Volume 91.6 fL (78.0-98.0); Mean Platelet Volume 8.9 fL (7.4-10.4); Monocytes 7 % (0-10); Neutrophil 37 % (42-75); Platelet Count 243 thou/uL (130-400); White Blood Cell (WBC) Count 6.4 thou/uL (4.8-10.8)
[2018-01-26] MEDS: Enoxaparin Sodium 40 MG/0.4 ML SYRINGE SC SCH (08:08)
[2018-01-26] MEDS: Magnesium Oxide 400 MG TAB PO SCH (08:08)
[2018-01-26] MEDS: Folic Acid 1 MG TAB PO SCH (08:08)
[2018-01-26] MEDS: Multivitamins, Adult 10 ML, Folic Acid 1 MG, Thiamine HCl 100 MG in Dextrose 5 %-0.45 %... IV SCH (08:14)
--- NOTE | 2018-01-26 10:27 | PRG ---
DATE OF SERVICE: 01/26/2018 This morning the patient is better. He said he is hungry. PHYSICAL EXAMINATION: VITAL SIGNS: His blood pressure is 161/101, pulse 128, temperature 98, sats 96%. He denies difficul ty breathing. CHEST: Chest reveals decreased breath sounds, no wheezing. CARDIAC: Sinus tachycardia. ABDOMEN: Soft. His bilirubin is down to 3.8. His AST down to 171. White count 6000, H&H 10 and 31. IMPRESSION: Acute alcoholic hepatitis and pancreatitis. stable. PLAN: Continue supportive care and PT. Refrain from drinking. I will follow.
--- NOTE | 2018-01-26 11:50 | PDOC.PN ---
- Subjective Encounter Start Date: 01/26/18 Encounter Start Time: 08:50 Subjective: feels better, tolerating liq diet -: abd pain is better -: family at bedside - Objective Resuscitation Status: Resuscitation Status FULL:Full Resuscitation MAR Reviewed: Yes Vital Signs & Weight: Vital Signs (12 hours) Temp Pulse Resp BP BP Pulse Ox 01/26/18 11:24 98.4 F 122 H 14 135/94 H 135/94 H 99 01/26/18 08:00 98.6 F 128 H 16 97 01/26/18 07:30 161/103 H 01/26/18 07:29 98.6 F 128 H 16 161/103 H 97 01/26/18 04:00 98.9 F 134 H 18 146/96 H 98 Weight Weight 190 lb 1.6 oz I&O: 01/25/18 01/26/18 01/27/18 06:59 06:59 06:59 Intake Total 5200 2490 Output Total 6650 1300 Balance -1450 1190 Result Diagrams: 01/26/18 04:22 01/26/18 04:22 Phys Exam - Physical Examination HEENT: PERRLA, moist MMs Neck: no JVD, supple Respiratory: no wheezing, no rales Cardiovascular: RRR, no significant murmur Gastrointestinal: soft, no distention, positive bowel sounds Musculoskeletal: no edema, pulses present Neurological: non-focal, moves all 4 limbs Psychiatric: A&O x 3 Dx/Plan (1) Pancreatitis Code(s): K85.90 - ACUTE PANCREATITIS WITHOUT NECROSIS OR INFECTION, UNSP Status: Acute Qualifiers: Chronicity: acute Pancreatitis type: alcohol induced Acute pancreatitis complication: unspecified Qualified Code(s): K85.20 - Alcohol induced acute pancreatitis without necrosis or infection Comment: Severe, Likely from Alcohol (2) Alcoholic hepatitis Code(s): K70.10 - ALCOHOLIC HEPATITIS WITHOUT ASCITES Status: Acute Qualifiers: Ascites presence: unspecified Qualified Code(s): K70.10 - Alcoholic hepatitis without ascites (3) Hypokalemia Code(s): E87.6 - HYPOKALEMIA Status: Acute Comment: resolving (4) Alcohol withdrawal Code(s): F10.239 - ALCOHOL DEPENDENCE WITH WITHDRAWAL, UNSPECIFIED Status: Acute Qualifiers: Complication of substance-induced condition: uncomplicated Qualified Code(s ): F10.230 - Alcohol dependence with withdrawal, uncomplicated - Plan clinically progessing well -: further imaging per GI advice -: on clear liq diet -: replace potassium -: prognosis guarded, lipase is trending down, lft's are holding up * . Review of Systems - Medications/Allergies Allergies/Adverse Reactions: Allergies Allergy/AdvReac Type Severity Reaction Status Date / Time Sulfa (Sulfonamide Allergy Intermediate Rash Verified 01/21/18 09:25 Antibiotics) Medications: Current Medications Baclofen (Lioresal) 10 mg PO BID PRN PRN Reason: Hiccups Last Admin: 01/24/18 11:07 Dose: 10 mg Diazepam (Valium) 5 mg PO Q4H PRN PRN Reason: FOR ASE 10 OR GREATER Enoxaparin Sodium (Lovenox) 40 mg SC 0900 [facility] Last Admin: 01/26/18 08:08 Dose: 40 mg Famotidine (Pepcid) 20 mg PO 2100 [facility] Last Admin: 01/25/18 20:00 Dose: 20 mg Folic Acid (Folvite) 1 mg PO DAILY [facility] Last Admin: 01/26/18 08:08 Dose: 1 mg Multivitamins 10 ml/ Folic Acid 1 mg/ Thiamine HCl 100 mg / Dextrose/Sodium Chloride 1,011.2 mls @ 150 mls/hr IV 0900 [facility] Last Admin: 01/26/18 08:14 Dose: 1,011.2 mls Sodium Chloride (Normal Saline 0.9%) 1,000 mls @ 150 mls/hr IV .Q6H40M [facility] Last Admin: 01/26/18 09:45 Dose: Not Given Potassium Chloride 40 meq/ (Sodium Chloride) 270 mls @ 135 mls/hr IVPB ASDIR PRN PRN Reason: FOR SERUM K+ 2.5 - 3.5 Potassium Chloride 40 meq/ (Device) 100 mls @ 50 mls/hr IVPB ASDIR PRN PRN Reason: FOR SERUM K+ 2.5 - 3.5 Magnesium Sulfate 1 gm/ Sodium (Chloride) 102 mls @ 102 mls/hr IV PRN PRN PRN Reason: MAG LEVEL 1.4 - 2.0 Magnesium Sulfate 2 gm/ Device 100 mls @ 100 mls/hr IVPB ASDIR PRN PRN Reason: MAGNESIUM < 1.4 Potassium Phosphate 9 mmol/ (Sodium Chloride) 103 mls @ 25.75 mls/hr IVPB ASDIR PRN PRN Reason: Phosphate 1.0-1.8 Potassium Phosphate 12 mmol/ (Sodium Chloride) 254 mls @ 63.5 mls/hr IV ASDIR PRN PRN Reason: Serum phosphate 0.5-0.9 Potassium Phosphate 15 mmol/ (Sodium Chloride) 255 mls @ 63.75 mls/hr IV ASDIR PRN PRN Reason: Serum Phos < 0.5 Lorazepam (Ativan) 1 mg SLOW IVP Q4H PRN PRN Reason: Anxiety/Agitation Last Admin: 01/26/18 08:21 Dose: 1 mg Magnesium Oxide (Magnesium Oxide) 400 mg PO DAILY [facility] Last Admin: 01/26/18 08:08 Dose: 400 mg Magnesium Oxide (Magnesium Oxide) 400 mg PO BIDPRN PRN PRN Reason: FOR SERUM MAG 1.4 - 2.0 Magnesium Oxide (Magnesium Oxide) 800 mg PO PRN PRN PRN Reason: FOR SERUM MAG < 1.4 Miscellaneous Medication (Phos-Nak) 1 pkt PO TIDPRN PRN PRN Reason: FOR PHOS LEVEL 1.0 - 1.8 Miscellaneous Medication (Phos-Nak) 2 pkt PO TIDPRN PRN PRN Reason: FOR PHOS LEVEL 0.5 - 1.0 Last Admin: 01/26/18 08:14 Dose: 2 pkt Morphine Sulfate (Morphine) 3 mg SLOW IVP Q4H PRN PRN Reason: Severe Pain (7-10) Last Admin: 01/26/18 08:08 Dose: 3 mg Ccu Electrolyte (Replacement Protocol) 0 each FS PRN PRN PRN Reason: FOR ELECTROLYTE REPLACEMENT Ondansetron HCl (Zofran Odt) 4 mg PO Q6H PRN PRN Reason: Nausea/Vomiting Last Admin: 01/25/18 16:09 Dose: 4 mg Ondansetron HCl (Zofran) 4 mg IVP Q6H PRN PRN Reason: Nausea/Vomiting Last Admin: 01/24/18 19:15 Dose: 4 mg Potassium Chloride (K-Dur) 40 meq PO ASDIR PRN PRN Reason: FOR SERUM K+ 2.5 - 3.5 Potassium Chloride (Klor-Con) 40 meq PER TUBE ASDIR PRN PRN Reason: FOR SERUM K+ 2.5-3.5 Sodium Chloride (Flush - Normal Saline) 10 ml IVF Q12HR [facility] Last Admin: 01/26/18 08:09 Dose: 10 ml Sodium Chloride (Flush - Normal Saline) 10 ml IVF PRN PRN PRN Reason: Saline Flush Last Admin: 01/24/18 05:46 Dose: 10 ml Thiamine HCl (Thiamine) 100 mg PO DAILY [facility] Last Admin: 01/26/18 08:08 Dose: 100 mg
[2018-01-26] MEDS: Potassium Chloride 20 MEQ TAB PO SCH (16:32)
[2018-01-26] MEDS: Famotidine 20 MG TAB PO SCH (19:14)
--- NOTE | 2018-01-26 19:16 | PRG ---
DATE OF SERVICE: 01/26/2018 REASON FOR CONSULTATION: Alcoholic hepatitis and acute pancreatitis. SUBJECTIVE: The patient states that he continues to have a midepigastric abdominal pain that is rela tively unchanged in frequency and severity. However, he has been able to sleep a little bit more dur ing the days with adequate pain relief. He also states that the last time he required narcotic pain medications was approximately yesterday afternoon which may indicate improvement in his abdominal joaquim n. He states that he is getting more hungry despite the administration of a clear liquid diet and he does have some mild nausea associated with the abdominal pain, but has had cessation of his hiccups. Currently denies any vomiting or GI bleeding. No episodes of repeat fever for the last 48 hours. OBJECTIVE: VITAL SIGNS: Temperature 98.6, pulse 123, blood pressure 123/70, respiratory rate 14, satting 98% on room air. GENERAL: The patient is lying in bed, in no acute distress. Alert and oriented x4. CARDIOVASCULAR: Tachycardic rate with regular rhythm. RESPIRATORY: Clear to auscultation bilaterally. ABDOMEN: Normoactive bowel sounds, soft, mild to moderate distention. Tenderness to palpation in th e midepigastric and periumbilical region. EXTREMITIES: No cyanosis, clubbing or edema. LABORATORY DATA: CBC with a white blood cell count of 6.4, hemoglobin 10.2, hematocrit 31.2, platele ts 243. INR of 1.1. Chemistry with a sodium of 138, potassium 3.1, chloride 105, CO2 of 26, BUN les s than 4, creatinine 0.66, glucose 122, AST 171, ALT 127, alkaline phosphatase 263, total bilirubin 3 .8, albumin 3.0. IMAGING DATA: No current GI imaging is available for review. ASSESSMENT AND PLAN: The patient is a 47-year-old male with past medical history of alcohol abuse an d posttraumatic stress disorder, presenting with acute alcoholic hepatitis and acute pancreatitis. Alcoholic hepatitis: The patient initially presented with a longstanding history of alcohol abuse an d drinking one bottle of vodka daily for the last 10 years. On admission, he was noted to have signi ficantly elevated transaminases in a 2:1 distribution consistent with alcoholic hepatitis. With cess ation of alcohol and more conservative management, he has had significant down trending of his liver function tests over the last 48-72 hours, although he did experience a mild increase in AST and alkal ine phosphatase today. I would not necessarily consider this a relapse in treatment, but rather more likely indicative of just ongoing inflammation. RECOMMENDATIONS: 1. We would continue to trend LFTs daily as well as INR for assessment of hepatic function. 2. We will continue to monitor for signs of hepatic encephalopathy, which may be a harbinger of wors ening hepatic function. 3. Continue to hold steroids or pentoxifylline. Pancreatitis: The patient presented with acute onset of mid epigastric/periumbilical abdominal pain 4-5 days prior to admission with imaging and labs on admission consistent with acute pancreatitis. Herber good has responded well to IV fluid resuscitation with both his BUN and creatinine returning to normal. However, he continues to have prolonged midepigastric abdominal pain consistent with pancreatitis de spite advancing his diet to a clear liquid diet. He has had no further fevers, so the likelihood of infective pancreatitis is much less likely. RECOMMENDATIONS: 1. We would continue the patient on clear liquid diet and assess for tolerance. 2. Pain control per primary team. 3. We will continue to monitor the patient with the possibility of reimaging with CT abdomen and pel vis to look for infective pancreatitis, especially if his fevers recur. No current antibiotic therap y is indicated at this time. We will continue to follow. Please call with any questions.
[2018-01-27] MEDS: Lorazepam 2 MG/ML VIAL SLOW IVP PRN ×6 (01:09→22:02)
[2018-01-27 04:40] LABS: #Basophils 0.1 thou/uL (0.0-0.2); #Eosinphils 0.2 thou/uL (0.0-0.7); #Lymphocytes 1.8 thou/uL (1.20-3.40); #Monocytes 1.1 thou/uL (0.11-0.59); #Neutrophils 4.6 thou/uL (1.40-6.50); %Basophils 1.1 % (0.0-1.0); %Eosinophils 2.9 % (0.0-10.0); %Lymphocytes 23.2 % (21.0-51.0); %Monocytes 13.5 % (0.0-10.0); %Neutrophils 59.3 % (42.0-75.0); Hemoglobin 9.6 g/dL (14.0-18.0); Mean Corpuscular HGB CONC 32.2 g/dL (32.0-36.0); Mean Corpuscular Hemoglobin 29.5 pg (27.0-31.0); Mean Corpuscular Volume 91.6 fL (78.0-98.0); Mean Platelet Volume 8.6 fL (7.4-10.4); Platelet Count 324 thou/uL (130-400); RBC Distribution Width 16.9 % (11.5-14.5); Red Blood Cell (RBC) Count 3.24 mill/uL (4.70-6.10); White Blood Cell (WBC) Count 7.8 thou/uL (4.8-10.8)
[2018-01-27] MEDS: Sodium Chloride 0.9% 1,000 ML IV SCH ×4 (04:53→18:04)
[2018-01-27 04:55] LABS: ALT (SGPT) 127 U/L (8-55); AST (SGOT) 114 U/L (5-34); Albumin 3.2 g/dL (3.5-5.0); Alkaline Phosphatase 283 U/L (40-150); Anion Gap 10 mmol/L (10-20); BUN (Urea Nitrogen) Less than 4 mg/dL (8.9-20.6); Bilirubin, Total 2.8 mg/dL (0.2-1.2); Calc. Creatinine Clearance 183 mL/min (70-130); Carbon Dioxide 25 mmol/L (22-29); Chloride 108 mmol/L (98-107); Estimated GFR-MDRD Greater than 90; Globulin 2.8 g/dL (2.4-3.5); Glucose 79 mg/dL (70-105); Potassium 3.3 mmol/L (3.5-5.1); Sodium 140 mmol/L (136-145)
[2018-01-27] MEDS: Potassium Chloride 20 MEQ TAB PO SCH ×2 (09:22→16:14)
[2018-01-27] MEDS: Magnesium Oxide 400 MG TAB PO SCH (09:22)
[2018-01-27] MEDS: Folic Acid 1 MG TAB PO SCH (09:23)
[2018-01-27] MEDS: Multivitamins, Adult 10 ML, Folic Acid 1 MG, Thiamine HCl 100 MG in Dextrose 5 %-0.45 %... IV SCH (09:24)
[2018-01-27] MEDS: Enoxaparin Sodium 40 MG/0.4 ML SYRINGE SC SCH (09:24)
--- NOTE | 2018-01-27 11:01 | PDOC.PN ---
- Subjective Encounter Start Date: 01/27/18 Encounter Start Time: 10:20 Subjective: no nausea, tolerating full liq diet -: abd pain is better but still present -: last bm was yesterday, is amb in hallway - Objective Resuscitation Status: Resuscitation Status FULL:Full Resuscitation MAR Reviewed: Yes Vital Signs & Weight: Vital Signs (12 hours) Temp Pulse Resp BP BP BP Pulse Ox 01/27/18 08:00 98.5 F 115 H 14 98 01/27/18 07:33 98.5 F 115 H 14 162/91 H 162/91 H 98 01/27/18 04:07 98.4 F 125 H 18 164/94 H 99 Weight Weight 190 lb 1.6 oz I&O: 01/26/18 01/27/18 01/28/18 06:59 06:59 06:59 Intake Total 2490 4093 Output Total 1300 4600 Balance 1190 -507 Result Diagrams: 01/27/18 04:15 01/27/18 04:15 Phys Exam - Physical Examination HEENT: PERRLA, moist MMs Neck: no JVD, supple Respiratory: no wheezing, no rales Cardiovascular: RRR, no significant murmur Gastrointestinal: soft, no distention, positive bowel sounds Musculoskeletal: no edema, pulses present Neurological: non-focal, moves all 4 limbs Psychiatric: A&O x 3 Dx/Plan (1) Pancreatitis Code(s): K85.90 - ACUTE PANCREATITIS WITHOUT NECROSIS OR INFECTION, UNSP Status: Acute Qualifiers: Chronicity: acute Pancreatitis type: alcohol induced Acute pancreatitis complication: unspecified Qualified Code(s): K85.20 - Alcohol induced acute pancreatitis without necrosis or infection Comment: Severe, Likely from Alcohol (2) Alcoholic hepatitis Code(s): K70.10 - ALCOHOLIC HEPATITIS WITHOUT ASCITES Status: Acute Qualifiers: Ascites presence: unspecified Qualified Code(s): K70.10 - Alcoholic hepatitis without ascites (3) Hypokalemia Code(s): E87.6 - HYPOKALEMIA Status: Acute Comment: resolving (4) Alcohol withdrawal Code(s): F10.239 - ALCOHOL DEPENDENCE WITH WITHDRAWAL, UNSPECIFIED Status: Acute Qualifiers: Complication of substance-induced condition: uncomplicated Qualified Code(s ): F10.230 - Alcohol dependence with withdrawal, uncomplicated - Plan tachycardia likely from alc withdrawal -: pancreatitis is slowly resolving, is tolerating full liq diet -: NS@150mls/hr, morphine and baclofen prn -: h/h stable, replace K -: to ambulate more in hallway as tolerated, may tx to med if ok with GI * . Review of Systems - Medications/Allergies Allergies/Adverse Reactions: Allergies Allergy/AdvReac Type Severity Reaction Status Date / Time Sulfa (Sulfonamide Allergy Intermediate Rash Verified 01/21/18 09:25 Antibiotics) Medications: Current Medications Baclofen (Lioresal) 10 mg PO BID PRN PRN Reason: Hiccups Last Admin: 01/24/18 11:07 Dose: 10 mg Diazepam (Valium) 5 mg PO Q4H PRN PRN Reason: FOR ASE 10 OR GREATER Enoxaparin Sodium (Lovenox) 40 mg SC 0900 [facility] Last Admin: 01/27/18 09:24 Dose: 40 mg Famotidine (Pepcid) 20 mg PO 2100 [facility] Last Admin: 01/26/18 19:14 Dose: 20 mg Folic Acid (Folvite) 1 mg PO DAILY [facility] Last Admin: 01/27/18 09:23 Dose: 1 mg Multivitamins 10 ml/ Folic Acid 1 mg/ Thiamine HCl 100 mg / Dextrose/Sodium Chloride 1,011.2 mls @ 150 mls/hr IV 0900 [facility] Last Admin: 01/27/18 09:24 Dose: 1,011.2 mls Sodium Chloride (Normal Saline 0.9%) 1,000 mls @ 150 mls/hr IV .Q6H40M [facility] Last Admin: 01/27/18 04:53 Dose: 1,000 mls Lorazepam (Ativan) 1 mg SLOW IVP Q4H PRN PRN Reason: Anxiety/Agitation Last Admin: 01/27/18 09:27 Dose: 1 mg Magnesium Oxide (Magnesium Oxide) 400 mg PO DAILY [facility] Last Admin: 01/27/18 09:22 Dose: 400 mg Morphine Sulfate (Morphine) 3 mg SLOW IVP Q4H PRN PRN Reason: Severe Pain (7-10) Last Admin: 01/27/18 09:26 Dose: 3 mg Ccu Electrolyte (Replacement Protocol) 0 each FS PRN PRN PRN Reason: FOR ELECTROLYTE REPLACEMENT Ondansetron HCl (Zofran Odt) 4 mg PO Q6H PRN PRN Reason: Nausea/Vomiting Last Admin: 01/25/18 16:09 Dose: 4 mg Ondansetron HCl (Zofran) 4 mg IVP Q6H PRN PRN Reason: Nausea/Vomiting Last Admin: 01/24/18 19:15 Dose: 4 mg Potassium Chloride (K-Dur) 40 meq PO BID-[facility] Last Admin: 01/27/18 09:22 Dose: 40 meq Sodium Chloride (Flush - Normal Saline) 10 ml IVF Q12HR [facility] Last Admin: 01/27/18 09:25 Dose: Not Given Sodium Chloride (Flush - Normal Saline) 10 ml IVF PRN PRN PRN Reason: Saline Flush Last Admin: 01/24/18 05:46 Dose: 10 ml Thiamine HCl (Thiamine) 100 mg PO DAILY [facility] Last Admin: 01/27/18 09:23 Dose: 100 mg
--- NOTE | 2018-01-27 12:16 | PRG ---
DATE OF SERVICE: 01/27/2018 SUBJECTIVE: This morning, he is till having abdominal pain, but it is better. No shortness of breat h. PHYSICAL EXAMINATION: VITAL SIGNS: Sats are 98% on room air, respiration 14, temperature 98, blood pressure 160/91. CHEST: No wheezing or crackles. CARDIAC: Normal S1 and S2. No gallops. ABDOMEN: Soft, mo masses. IMPRESSION: Alcoholic hepatitis, pancreatitis, improved. PLAN: Disposition per primary care physician and GI. Pulmonary will follow at a distance. Please c all if needed.
--- NOTE | 2018-01-27 15:41 | PRG ---
DATE OF SERVICE: 01/27/2018 REASON FOR CONSULTATION: Alcoholic hepatitis and acute pancreatitis. SUBJECTIVE: The patient states that he is doing better this morning with a decrease in his abdominal pain when compared to the prior two days. He was able to sleep a little bit more last night, but lujan s been requiring frequent pain control per nursing staff. He said that he is getting more hungry and was able to tolerate a full liquid diet without difficulty. He did have approximately one solid bow el movement yesterday with no difficulty with defecation. Currently, he denies any nausea, vomiting, fevers, chills, shortness of breath, dysphagia, odynophagia, diarrhea or constipation. OBJECTIVE: VITAL SIGNS: Temperature 98.3, pulse 117, blood pressure 143/93, respiratory rate 16, satting 97% on room air. GENERAL: The patient is lying in bed in no acute distress. He is alert and oriented x4. CARDIOVASCULAR: Tachycardic rate with regular rhythm. RESPIRATORY: Clear to auscultation bilaterally. ABDOMEN: Normoactive bowel sounds, soft, mild to moderate abdominal distention, tenderness to palpat ion in the midepigastric and periumbilical region. EXTREMITIES: No cyanosis, clubbing or edema. LABORATORY DATA: CBC with a white blood cell count of 7.8, hemoglobin 9.6, hematocrit 29.6, platelet s 324. Chemistry with a sodium of 140, potassium 3.3, chloride 108, CO2 of 25, BUN less than 4, crea tinine 0.61, glucose 79, AST 114, ALT 127, alkaline phosphatase 283, total bilirubin 2.8. IMAGING DATA: No current GI imaging is available for review. ASSESSMENT AND PLAN: The patient is a 47-year-old male with past medical history of alcohol abuse an d posttraumatic stress disorder presenting with acute alcoholic hepatitis and acute pancreatitis. Alcoholic hepatitis. The patient initially presented with a longstanding history of alcohol abuse an d was drinking one bottle of vodka daily for the last 10 years. On admission, he was noted to have s ignificantly elevated transaminases in the 2:1 distribution consistent with alcoholic hepatitis with more conservative management during this hospitalization. His liver function tests have been slowly down trending, although they did experience a mild increase yesterday, but have continued to downtren d today. At this point, given the current direction of which his enzymes are heading, I would say th at he is responding well to conservative management. RECOMMENDATIONS: 1. We would continue to trend LFTs daily as well as INR for assessment of hepatic function. 2. We would continue to monitor for signs of hepatic encephalopathy, which may be a harbinger of wor sening hepatic failure. 2. Continue to hold steroids or pentoxifylline. Pancreatitis. The patient presented with acute onset of midepigastric/periumbilical abdominal pain 4 -5 days prior to admission with imaging and labs on admission consistent with acute pancreatitis. Th us far, he has responded well to IV fluid resuscitation with his kidney function returning to normal when compared to admission; however, he does continue to have increased abdominal pain requiring freq uent pain medication administration. However, he has been able to tolerate more of a full liquid t, indicating that clinically he is responding well. He has had no further fever for the last 72 neda rs, making the likelihood of infective pancreatitis much less likely. RECOMMENDATIONS: 1. We will continue to advance the patient's diet as tolerated to a low fat diet and assess for tole shawn. 2. Pain control per primary team. 3. No further imaging or antibiotic therapy is indicated at this time. We will continue to follow. Please call with any questions.
[2018-01-27] MEDS ORDERED: Diltiazem HCl 125 MG, Admixture Fee 1 EACH in Sodium Chloride 0.9% 100 ML IVPB SCH (17:15)
--- NOTE | 2018-01-27 19:07 | RAD ---
SINGLE VIEW OF THE CHEST: 01/27/18 COMPARISON: 01/21/18. HISTORY: Chest congestion and acute pancreatitis. FINDINGS: Single view of the chest shows a normal sized cardiomediastinal silhouette. There is no evidence of c onsolidation, mass, or pleural effusion. Hardware seen in the cervical spine. IMPRESSION: No evidence of acute cardiopulmonary disease. POS: [facility]
[2018-01-27] MEDS: Famotidine 20 MG TAB PO SCH (22:01)
[2018-01-27] MEDS: Metoprolol Tartrate 25 MG TAB PO SCH (22:01)
[2018-01-28] MEDS: Lorazepam 2 MG/ML VIAL SLOW IVP PRN ×6 (02:27→23:40)
[2018-01-28 04:53] LABS: #Eosinphils 0.2 thou/uL (0.0-0.7); #Monocytes 1.1 thou/uL (0.11-0.59); #Neutrophils 6.1 thou/uL (1.40-6.50); %Basophils 0.3 % (0.0-1.0); %Eosinophils 2.5 % (0.0-10.0); %Lymphocytes 21.1 % (21.0-51.0); %Monocytes 11.2 % (0.0-10.0); Hemoglobin 9.2 g/dL (14.0-18.0); Mean Corpuscular HGB CONC 32.6 g/dL (32.0-36.0); Mean Corpuscular Hemoglobin 29.6 pg (27.0-31.0); Mean Corpuscular Volume 90.8 fL (78.0-98.0); Mean Platelet Volume 8.8 fL (7.4-10.4); Platelet Count 381 thou/uL (130-400); RBC Distribution Width 17.3 % (11.5-14.5); White Blood Cell (WBC) Count 9.4 thou/uL (4.8-10.8)
[2018-01-28 05:20] LABS: ALT (SGPT) 120 U/L (8-55); AST (SGOT) 115 U/L (5-34); Albumin 3.2 g/dL (3.5-5.0); Alkaline Phosphatase 324 U/L (40-150); Anion Gap 11 mmol/L (10-20); BUN (Urea Nitrogen) 4 mg/dL (8.9-20.6); Bilirubin, Total 2.3 mg/dL (0.2-1.2); Calc. Creatinine Clearance 161 mL/min (70-130); Calcium 8.7 mg/dL (7.8-10.44); Carbon Dioxide 25 mmol/L (22-29); Chloride 107 mmol/L (98-107); Estimated GFR-MDRD Greater than 90; Glucose 86 mg/dL (70-105); Potassium 3.9 mmol/L (3.5-5.1); Protein, Total 6.2 g/dL (6.0-8.3); Sodium 139 mmol/L (136-145)
[2018-01-28] MEDS: Multivitamins, Adult 10 ML, Folic Acid 1 MG, Thiamine HCl 100 MG in Dextrose 5 %-0.45 %... IV SCH (09:05)
[2018-01-28] MEDS: Magnesium Oxide 400 MG TAB PO SCH (09:05)
[2018-01-28] MEDS: Enoxaparin Sodium 40 MG/0.4 ML SYRINGE SC SCH (09:05)
[2018-01-28] MEDS: Potassium Chloride 20 MEQ TAB PO SCH ×2 (09:05→15:32)
[2018-01-28] MEDS: Folic Acid 1 MG TAB PO SCH (09:05)
[2018-01-28] MEDS: Sodium Chloride 0.9% 1,000 ML IV SCH ×2 (09:05→23:49)
[2018-01-28] MEDS: Metoprolol Tartrate 25 MG TAB PO SCH ×2 (09:06→19:38)
--- NOTE | 2018-01-28 11:20 | PDOC.PN ---
- Subjective Encounter Start Date: 01/28/18 Encounter Start Time: 10:00 Subjective: no sob or chest pain or palp -: is feeling better -: at bedside - Objective Resuscitation Status: Resuscitation Status FULL:Full Resuscitation MAR Reviewed: Yes Vital Signs & Weight: Vital Signs (12 hours) Temp Pulse Resp BP BP BP Pulse Ox 01/28/18 08:00 98.2 F 107 H 16 148/92 H 148/92 H 98 01/28/18 04:10 159/97 H 01/28/18 03:39 98.8 F 102 H 14 159/97 H 98 01/27/18 23:54 98.7 F 109 H 18 144/88 H 98 Weight Weight 190 lb 1.6 oz I&O: 01/27/18 01/28/18 01/29/18 06:59 06:59 06:59 Intake Total 4093 5019 Output Total 4600 2935 Balance -507 2084 Result Diagrams: 01/28/18 04:24 01/28/18 04:24 Phys Exam - Physical Examination HEENT: PERRLA, moist MMs Neck: no JVD, supple Respiratory: no wheezing, no rales Cardiovascular: RRR, no significant murmur Gastrointestinal: soft, no distention, positive bowel sounds Musculoskeletal: no edema, pulses present Neurological: non-focal, moves all 4 limbs Psychiatric: normal affect, A&O x 3 Dx/Plan (1) Pancreatitis Code(s): K85.90 - ACUTE PANCREATITIS WITHOUT NECROSIS OR INFECTION, UNSP Status: Acute Qualifiers: Chronicity: acute Pancreatitis type: alcohol induced Acute pancreatitis complication: unspecified Qualified Code(s): K85.20 - Alcohol induced acute pancreatitis without necrosis or infection Comment: Severe, Likely from Alcohol (2) Alcoholic hepatitis Code(s): K70.10 - ALCOHOLIC HEPATITIS WITHOUT ASCITES Status: Acute Qualifiers: Ascites presence: unspecified Qualified Code(s): K70.10 - Alcoholic hepatitis without ascites (3) Hypokalemia Code(s): E87.6 - HYPOKALEMIA Status: Acute Comment: resolving (4) Alcohol withdrawal Code(s): F10.239 - ALCOHOL DEPENDENCE WITH WITHDRAWAL, UNSPECIFIED Status: Acute Qualifiers: Complication of substance-induced condition: uncomplicated Qualified Code(s ): F10.230 - Alcohol dependence with withdrawal, uncomplicated - Plan cxr shows no effusion/congestion -: on gentle iv hydration -: Hb around 9g -: morphine, baclofen prn -: full liq diet, may tx to med floor * . Review of Systems - Medications/Allergies Allergies/Adverse Reactions: Allergies Allergy/AdvReac Type Severity Reaction Status Date / Time Sulfa (Sulfonamide Allergy Intermediate Rash Verified 01/21/18 09:25 Antibiotics) Medications: Current Medications Baclofen (Lioresal) 10 mg PO BID PRN PRN Reason: Hiccups Last Admin: 01/24/18 11:07 Dose: 10 mg Diazepam (Valium) 5 mg PO Q4H PRN PRN Reason: FOR ASE 10 OR GREATER Enoxaparin Sodium (Lovenox) 40 mg SC 0900 [facility] Last Admin: 01/28/18 09:05 Dose: 40 mg Famotidine (Pepcid) 20 mg PO 2100 [facility] Last Admin: 01/27/18 22:01 Dose: 20 mg Folic Acid (Folvite) 1 mg PO DAILY [facility] Last Admin: 01/28/18 09:05 Dose: 1 mg Multivitamins 10 ml/ Folic Acid 1 mg/ Thiamine HCl 100 mg / Dextrose/Sodium Chloride 1,011.2 mls @ 150 mls/hr IV 0900 [facility] Last Admin: 01/28/18 09:05 Dose: 1,011.2 mls Sodium Chloride (Normal Saline 0.9%) 1,000 mls @ 70 mls/hr IV .[id number] [facility] Last Admin: 01/28/18 09:05 Dose: Not Given Lorazepam (Ativan) 1 mg SLOW IVP Q4H PRN PRN Reason: Anxiety/Agitation Last Admin: 01/28/18 06:29 Dose: 1 mg Magnesium Oxide (Magnesium Oxide) 400 mg PO DAILY [facility] Last Admin: 01/28/18 09:05 Dose: 400 mg Metoprolol Tartrate (Lopressor) 25 mg PO BID [facility] Last Admin: 01/28/18 09:06 Dose: 25 mg Morphine Sulfate (Morphine) 3 mg SLOW IVP Q4H PRN PRN Reason: Severe Pain (7-10) Last Admin: 01/28/18 06:30 Dose: 3 mg Ccu Electrolyte (Replacement Protocol) 0 each FS PRN PRN PRN Reason: FOR ELECTROLYTE REPLACEMENT Ondansetron HCl (Zofran Odt) 4 mg PO Q6H PRN PRN Reason: Nausea/Vomiting Last Admin: 01/25/18 16:09 Dose: 4 mg Ondansetron HCl (Zofran) 4 mg IVP Q6H PRN PRN Reason: Nausea/Vomiting Last Admin: 01/24/18 19:15 Dose: 4 mg Potassium Chloride (K-Dur) 40 meq PO BID-[facility] Last Admin: 01/28/18 09:05 Dose: 40 meq Sodium Chloride (Flush - Normal Saline) 10 ml IVF Q12HR [facility] Last Admin: 01/28/18 09:06 Dose: Not Given Sodium Chloride (Flush - Normal Saline) 10 ml IVF PRN PRN PRN Reason: Saline Flush Last Admin: 01/28/18 06:31 Dose: 10 ml Thiamine HCl (Thiamine) 100 mg PO DAILY [facility] Last Admin: 01/28/18 09:05 Dose: 100 mg
--- NOTE | 2018-01-28 12:27 | EKG ---
Test Reason : Blood Pressure : / mmHG Vent. Rate : 156 BPM Atrial Rate : 156 BPM P-R Int : 126 ms QRS Dur : 078 ms QT Int : 262 ms P-R-T Axes : 038 059 -03 degrees QTc Int : 422 ms Sinus tachycardia T wave abnormality, consider inferior ischemia Abnormal ECG Confirmed by GIDEON ROPER MD ([id number]), editorial specialist KELLE SPENCE ([id number]) on 01/28/2018 12:27:07 PM Referred By: Confirmed By:GIDEON ROPER MD
[2018-01-28] MEDS: Famotidine 20 MG TAB PO SCH (19:38)
[2018-01-29] MEDS: Lorazepam 2 MG/ML VIAL SLOW IVP PRN ×3 (05:02→22:44)
[2018-01-29 05:31] LABS: ALT (SGPT) 97 U/L (8-55); AST (SGOT) 65 U/L (5-34); Albumin 3.4 g/dL (3.5-5.0); Alkaline Phosphatase 269 U/L (40-150); Anion Gap 9 mmol/L (10-20); BUN (Urea Nitrogen) 5 mg/dL (8.9-20.6); Bilirubin, Total 2.1 mg/dL (0.2-1.2); Calc. Creatinine Clearance 157 mL/min (70-130); Calcium 8.9 mg/dL (7.8-10.44); Carbon Dioxide 28 mmol/L (22-29); Chloride 106 mmol/L (98-107); Estimated GFR-MDRD Greater than 90; Glucose 93 mg/dL (70-105); Potassium 3.9 mmol/L (3.5-5.1); Protein, Total 6.4 g/dL (6.0-8.3); Sodium 139 mmol/L (136-145)
[2018-01-29 07:07] LABS: Mean Corpuscular HGB CONC 30.6 g/dL (32.0-36.0); Mean Corpuscular Hemoglobin 27.9 pg (27.0-31.0); Mean Corpuscular Volume 91.3 fL (78.0-98.0); Mean Platelet Volume 8.4 fL (7.4-10.4); Platelet Count 461 thou/uL (130-400); RBC Distribution Width 17.5 % (11.5-14.5); Red Blood Cell (RBC) Count 3.23 mill/uL (4.70-6.10)
[2018-01-29 07:15] LABS: Anisocytosis MODERATE=16-30 cells (100X) (0-5/hpf); Band 20 % (5-11); Eosinophils 2 % (0-10); Hypochromia MODERATE=16-30 cells (100X) (0-5/hpf); Lymphocytes 18 % (21-51); MDiff Complete? YES; Monocytes 5 % (0-10); Neutrophil 52 % (42-75); PLT Morphology Comment Appears Increased; Polychromasia MODERATE = 3-4 cells (100X) (0-2/hpf); Reactive Lymphocytes 3 % (0-10); Stomatocytes SLIGHT = 2-5 cells (100X) (0-1/hpf)
[2018-01-29] MEDS: Folic Acid 1 MG TAB PO SCH (07:57)
[2018-01-29] MEDS: Potassium Chloride 20 MEQ TAB PO SCH ×2 (07:57→17:21)
[2018-01-29] MEDS: Metoprolol Tartrate 25 MG TAB PO SCH ×2 (07:57→20:07)
[2018-01-29] MEDS: Magnesium Oxide 400 MG TAB PO SCH (07:57)
[2018-01-29] MEDS: Enoxaparin Sodium 40 MG/0.4 ML SYRINGE SC SCH (07:58)
[2018-01-29] MEDS: Sodium Chloride 0.9% 1,000 ML IV SCH ×2 (08:04→12:15)
[2018-01-29] MEDS: Multivitamins, Adult 10 ML, Folic Acid 1 MG, Thiamine HCl 100 MG in Dextrose 5 %-0.45 %... IV SCH (09:56)
[2018-01-29] MEDS ORDERED: traMADol HCl 50 MG TAB PO PRN (12:27)
--- NOTE | 2018-01-29 13:06 | PDOC.PN ---
- Subjective Encounter Start Date: 01/29/18 Encounter Start Time: 11:15 Subjective: abd pain is better, no sob -: tolerating oral diet, is amb in hallway - Objective Resuscitation Status: Resuscitation Status FULL:Full Resuscitation MAR Reviewed: Yes Vital Signs & Weight: Vital Signs (12 hours) Temp Pulse Resp BP BP Pulse Ox 01/29/18 12:00 146/92 H 01/29/18 08:00 98.6 F 92 18 146/92 H 98 01/29/18 07:35 98.6 F 92 18 146/92 H 98 01/29/18 04:00 146/97 H Weight Weight 190 lb 1.6 oz I&O: 01/28/18 01/29/18 01/30/18 06:59 06:59 06:59 Intake Total 5019 770 Output Total 2935 1100 Balance 2084 -330 Result Diagrams: 01/29/18 04:48 01/29/18 04:48 Phys Exam - Physical Examination HEENT: PERRLA, moist MMs Neck: no JVD, supple Respiratory: no wheezing, no rales Cardiovascular: RRR, no significant murmur Gastrointestinal: soft, no distention, positive bowel sounds Musculoskeletal: no edema, pulses present Neurological: non-focal, moves all 4 limbs Psychiatric: A&O x 3 Dx/Plan (1) Pancreatitis Code(s): K85.90 - ACUTE PANCREATITIS WITHOUT NECROSIS OR INFECTION, UNSP Status: Acute Qualifiers: Chronicity: acute Pancreatitis type: alcohol induced Acute pancreatitis complication: unspecified Qualified Code(s): K85.20 - Alcohol induced acute pancreatitis without necrosis or infection Comment: Severe, Likely from Alcohol (2) Alcoholic hepatitis Code(s): K70.10 - ALCOHOLIC HEPATITIS WITHOUT ASCITES Status: Acute Qualifiers: Ascites presence: unspecified Qualified Code(s): K70.10 - Alcoholic hepatitis without ascites (3) Hypokalemia Code(s): E87.6 - HYPOKALEMIA Status: Acute Comment: resolving (4) Alcohol withdrawal Code(s): F10.239 - ALCOHOL DEPENDENCE WITH WITHDRAWAL, UNSPECIFIED Status: Acute Qualifiers: Complication of substance-induced condition: uncomplicated Qualified Code(s ): F10.230 - Alcohol dependence with withdrawal, uncomplicated - Plan on iv fluids -: lft's are trending down to baseline, pulse is below 100's -: tolerating oral diet -: may dc in am if ok with GI and his abd pain is better -: further imaging per GI advice * . Review of Systems - Medications/Allergies Allergies/Adverse Reactions: Allergies Allergy/AdvReac Type Severity Reaction Status Date / Time Sulfa (Sulfonamide Allergy Intermediate Rash Verified 01/21/18 09:25 Antibiotics) Medications: Current Medications Diazepam (Valium) 5 mg PO Q4H PRN PRN Reason: FOR ASE 10 OR GREATER Enoxaparin Sodium (Lovenox) 40 mg SC 0900 [facility] Last Admin: 01/29/18 07:58 Dose: 40 mg Famotidine (Pepcid) 20 mg PO 2100 [facility] Last Admin: 01/28/18 19:38 Dose: 20 mg Folic Acid (Folvite) 1 mg PO DAILY [facility] Last Admin: 01/29/18 07:57 Dose: 1 mg Multivitamins 10 ml/ Folic Acid 1 mg/ Thiamine HCl 100 mg / Dextrose/Sodium Chloride 1,011.2 mls @ 150 mls/hr IV 0900 [facility] Last Admin: 01/29/18 09:56 Dose: 1,011.2 mls Sodium Chloride (Normal Saline 0.9%) 1,000 mls @ 70 mls/hr IV .[id number] [facility] Last Admin: 01/29/18 12:15 Dose: Not Given Lorazepam (Ativan) 1 mg SLOW IVP Q4H PRN PRN Reason: Anxiety/Agitation Last Admin: 01/29/18 05:02 Dose: 1 mg Magnesium Oxide (Magnesium Oxide) 400 mg PO DAILY [facility] Last Admin: 01/29/18 07:57 Dose: 400 mg Metoprolol Tartrate (Lopressor) 25 mg PO BID [facility] Last Admin: 01/29/18 07:57 Dose: 25 mg Morphine Sulfate (Morphine) 3 mg SLOW IVP Q4H PRN PRN Reason: Severe Pain (7-10) Last Admin: 01/29/18 09:57 Dose: 3 mg Ccu Electrolyte (Replacement Protocol) 0 each FS PRN PRN PRN Reason: FOR ELECTROLYTE REPLACEMENT Ondansetron HCl (Zofran Odt) 4 mg PO Q6H PRN PRN Reason: Nausea/Vomiting Last Admin: 01/25/18 16:09 Dose: 4 mg Ondansetron HCl (Zofran) 4 mg IVP Q6H PRN PRN Reason: Nausea/Vomiting Last Admin: 01/24/18 19:15 Dose: 4 mg Potassium Chloride (K-Dur) 40 meq PO BID-WM [facility] Last Admin: 01/29/18 07:57 Dose: 40 meq Sodium Chloride (Flush - Normal Saline) 10 ml IVF Q12HR [facility] Last Admin: 01/29/18 07:58 Dose: 10 ml Sodium Chloride (Flush - Normal Saline) 10 ml IVF PRN PRN PRN Reason: Saline Flush Last Admin: 01/28/18 06:31 Dose: 10 ml Thiamine HCl (Thiamine) 100 mg PO DAILY [facility] Last Admin: 01/29/18 07:57 Dose: 100 mg Tramadol HCl (Ultram) 50 mg PO QID PRN PRN Reason: Moderate Pain (4-6)
[2018-01-29] MEDS: Famotidine 20 MG TAB PO SCH (20:07)
[2018-01-30] MEDS: Sodium Chloride 0.9% 1,000 ML IV SCH (03:25)
[2018-01-30 05:08] LABS: #Basophils 0.1 thou/uL (0.0-0.2); #Eosinphils 0.2 thou/uL (0.0-0.7); #Lymphocytes 2.3 thou/uL (1.20-3.40); #Monocytes 0.8 thou/uL (0.11-0.59); #Neutrophils 4.9 thou/uL (1.40-6.50); %Basophils 1.3 % (0.0-1.0); %Eosinophils 2.2 % (0.0-10.0); %Lymphocytes 27.8 % (21.0-51.0); %Monocytes 9.6 % (0.0-10.0); %Neutrophils 59.2 % (42.0-75.0); Hemoglobin 9.5 g/dL (14.0-18.0); Mean Corpuscular HGB CONC 32.2 g/dL (32.0-36.0); Mean Corpuscular Hemoglobin 29.4 pg (27.0-31.0); Mean Corpuscular Volume 91.4 fL (78.0-98.0); Mean Platelet Volume 8.5 fL (7.4-10.4); Platelet Count 468 thou/uL (130-400); RBC Distribution Width 17.6 % (11.5-14.5); Red Blood Cell (RBC) Count 3.21 mill/uL (4.70-6.10); White Blood Cell (WBC) Count 8.2 thou/uL (4.8-10.8)
[2018-01-30 05:41] LABS: ALT (SGPT) 86 U/L (8-55); AST (SGOT) 65 U/L (5-34); Albumin 3.4 g/dL (3.5-5.0); Alkaline Phosphatase 222 U/L (40-150); Anion Gap 12 mmol/L (10-20); BUN (Urea Nitrogen) 7 mg/dL (8.9-20.6); Bilirubin, Total 1.9 mg/dL (0.2-1.2); Calc. Creatinine Clearance 141 mL/min (70-130); Carbon Dioxide 25 mmol/L (22-29); Chloride 105 mmol/L (98-107); Estimated GFR-MDRD Greater than 90; Glucose 88 mg/dL (70-105); Potassium 3.9 mmol/L (3.5-5.1); Protein, Total 6.4 g/dL (6.0-8.3); Sodium 138 mmol/L (136-145)
[2018-01-30 07:53] VITALS: BP 144/92; TEMP 98.9
[2018-01-30] MEDS: Folic Acid 1 MG TAB PO SCH (09:14)
[2018-01-30] MEDS: Metoprolol Tartrate 25 MG TAB PO SCH (09:15)
[2018-01-30] MEDS: Multivitamins, Adult 10 ML, Folic Acid 1 MG, Thiamine HCl 100 MG in Dextrose 5 %-0.45 %... IV SCH (09:15)
[2018-01-30] MEDS: Potassium Chloride 20 MEQ TAB PO SCH (09:15)
[2018-01-30] MEDS: Magnesium Oxide 400 MG TAB PO SCH (09:15)
[2018-01-30] MEDS: Enoxaparin Sodium 40 MG/0.4 ML SYRINGE SC SCH (09:16)
--- NOTE | 2018-01-30 09:30 | PRG ---
DATE OF SERVICE: 01/30/2018 SUBJECTIVE: This morning, he is better, still has abdominal pain. OBJECTIVE: VITAL SIGNS: He is afebrile, pulse 111, temperature 98, blood pressure 140/92, still having abdomina l pain. CHEST: Chest reveals decreased breath sounds without any wheezing. CARDIAC: Normal S1, S2. No gallops. ABDOMEN: Soft without any masses. LABORATORY DATA: His bilirubin is 1.7, AST 65, almost back to normal. Electrolytes are normal. IMPRESSION: Pancreatitis, hepatitis, alcoholic-induced. PLAN: Pulmonary will follow at a distance. DISPOSITION: As per primary care physician and GI.
--- NOTE | 2018-01-30 11:44 | PDOC.PN ---
- Subjective Encounter Start Date: 01/30/18 Encounter Start Time: 07:00 Subjective: abdominal pain is 2/10 and wants to go home -: no nausea, is tolerating oral diet -: is amb in hallway - Objective Resuscitation Status: Resuscitation Status FULL:Full Resuscitation MAR Reviewed: Yes Vital Signs & Weight: Vital Signs (12 hours) Temp Pulse Resp BP BP Pulse Ox 01/30/18 08:00 98.9 F 111 H 16 144/92 H 99 01/30/18 07:52 98.9 F 111 H 16 144/92 H 98 Weight Weight 190 lb 1.6 oz I&O: 01/29/18 01/30/18 01/31/18 06:59 06:59 06:59 Intake Total 770 3170 Output Total 1100 2400 Balance -330 770 Result Diagrams: 01/30/18 04:38 01/30/18 04:38 Phys Exam - Physical Examination HEENT: PERRLA, moist MMs Neck: no JVD, supple Respiratory: no wheezing, no rales Cardiovascular: RRR, no significant murmur Gastrointestinal: soft, no distention, positive bowel sounds Musculoskeletal: no edema, pulses present Neurological: non-focal, moves all 4 limbs Psychiatric: normal affect, A&O x 3 Dx/Plan (1) Pancreatitis Code(s): K85.90 - ACUTE PANCREATITIS WITHOUT NECROSIS OR INFECTION, UNSP Status: Acute Qualifiers: Chronicity: acute Pancreatitis type: alcohol induced Acute pancreatitis complication: unspecified Qualified Code(s): K85.20 - Alcohol induced acute pancreatitis without necrosis or infection Comment: Severe, Likely from Alcohol (2) Alcoholic hepatitis Code(s): K70.10 - ALCOHOLIC HEPATITIS WITHOUT ASCITES Status: Acute Qualifiers: Ascites presence: unspecified Qualified Code(s): K70.10 - Alcoholic hepatitis without ascites (3) Hypokalemia Code(s): E87.6 - HYPOKALEMIA Status: Resolved (4) Alcohol withdrawal Code(s): F10.239 - ALCOHOL DEPENDENCE WITH WITHDRAWAL, UNSPECIFIED Status: Acute Qualifiers: Complication of substance-induced condition: uncomplicated Qualified Code(s ): F10.230 - Alcohol dependence with withdrawal, uncomplicated - Plan hemostable -: dc pt home if ok with GI -: counselled against using any type of alcohol -: low fat diet * .
--- NOTE | 2018-01-30 23:07 | DIS ---
DATE OF ADMISSION: 01/21/2018 DATE OF DISCHARGE: 01/30/2018 DISCHARGE DISPOSITION: To home. PRIMARY DISCHARGE DIAGNOSES: Acute severe pancreatitis secondary to alcohol abuse, alcoholic hepatitis resolving, alcohol withdrawal. PROCEDURES DONE DURING HOSPITALIZATION: Abdominal and pelvic CAT scan done on the day of admission showed peripancreatic inflammatory change. There were also inflammatory changes seen in the upper mesentery. Echo with 2D Doppler showed EF of 45%-50%. Blood cultures x2 no growth. Discharge hemoglobin and hematocrit 9 and 29 with platelet count of 468, MCV is 91, white count of 8.2, total bilirubin was 4.8, which spiked up to 8.4 on 01/23/2018 with discharge numbers of 1.9, initial AST was 2751 with discharge numbers of 65, ALT was 757 on the day of admission with discharge numbers of 86, alkaline phosphatase was 58 on the day of admission with discharge numbers of 222. Initial lipase was 4177 with a repeat level of 230 done on 01/26/2018, triglyceride levels were 178. Discharge BUN and creatinine is 7 and 0.7. Antimitochondrial antibody was 0.8. Smooth muscle antibody titer was 10. Acute hepatitis panel was negative. INPATIENT CONSULTS: Dr. Ricardo Saleh for Gastroenterology and Dr. Rutledge for Pulmonology. DISCHARGE PLAN: Patient to follow up with Dr. Nereida Silva as advised and primary care physician in 1 week. BRIEF COURSE DURING HOSPITALIZATION: Patient initially came in with complaints of severe abdominal pain, nausea and vomiting. He had admitted to drinking a bottle of vodka on a daily basis. He has been doing so for the last 10 years or so. Initial CAT scan on arrival showed severe pancreatitis. He was placed in IMCU initially. He has had consultation with Dr. Delfino Silva for Gastroenterology. The patient was kept n.p.o. and was closely monitored with aggressive hydration. Patient has responded well to above measures. The patient had alcohol withdrawal as well during his stay here. He was counseled with regards to complete alcohol cessation. This morning, his abdominal pain is almost resolved and patient is wanting to go home. He has remained hemodynamically stable and will be shortly discharged home. Patient has been advised to come to the nearest emergency room if he were to develop fever or worsening abdominal pain. Please see a [id number] documentation on [facility] for the day of discharge. [facility]
== END 2018-01-30 12:45 | disposition home or self-care (01) | DRG 438 ==
LOC: ERS 08:51 → IMCU/EMU 12:14 → 2NO 01-25 15:22 → T4-B 01-28 12:15
PROVIDERS: ADMIT Internal Medicine Infectious Disease; ATTEND Internal Medicine Infectious Disease
DX: K85.20 Alcohol induced acute pancreatitis without necrosis or infection (principal); A41.9 Sepsis, unspecified organism; F10.239 Alcohol dependence with withdrawal, unspecified; N17.9 Acute kidney failure, unspecified; K70.10 Alcoholic hepatitis without ascites; Y90.9 Presence of alcohol in blood, level not specified; E87.6 Hypokalemia; E86.0 Dehydration; N19 Unspecified kidney failure; G89.29 Other chronic pain; I25.2 Old myocardial infarction
CPT/HCPCS: 36415; 71045; 74176; 76705; 80053; 80061; 80074; 82553; 83516; 83540; 83550; 83605; 83690; 83735; 83880; 84100; 84484; 85025; 85610; 87040; 93005; 93010; 93306; 96361; 96365; 96375; 96376; A4216; G8978-GP-CJ; G8979-GP-CJ; G8980-GP-CJ; J1650; J2060; J2270; J2405; J2543; J3010; J3411; J3475; J3480; J7042; J7050; Q0162; S0028

== ENCOUNTER 2018-07-11 12:21 | Emergency (ER) | payer OTHER, SELFPAY ==
[2018-07-11 13:02] LABS: #Basophils 0.1 thou/uL (0.0-0.2); #Eosinphils 0.1 thou/uL (0.0-0.7); #Lymphocytes 2.2 thou/uL (1.20-3.40); #Monocytes 0.5 thou/uL (0.11-0.59); #Neutrophils 2.6 thou/uL (1.40-6.50); %Basophils 0.9 % (0.0-1.0); %Eosinophils 2.5 % (0.0-10.0); %Lymphocytes 40.6 % (21.0-51.0); %Monocytes 8.4 % (0.0-10.0); %Neutrophils 47.5 % (42.0-75.0); Hemoglobin 11.7 g/dL (14.0-18.0); Mean Corpuscular HGB CONC 34.6 g/dL (32.0-36.0); Mean Corpuscular Hemoglobin 30.9 pg (27.0-31.0); Mean Corpuscular Volume 89.4 fL (78.0-98.0); Mean Platelet Volume 7.3 fL (7.4-10.4); Platelet Count 229 thou/uL (130-400); RBC Distribution Width 13.6 % (11.5-14.5); Red Blood Cell (RBC) Count 3.78 mill/uL (4.70-6.10); White Blood Cell (WBC) Count 5.4 thou/uL (4.8-10.8)
[2018-07-11] MEDS ORDERED: Lorazepam 2 MG/ML VIAL ONE ×2 (13:05→17:36)
[2018-07-11 13:18] LABS: Bilirubin Negative (Negative); Blood, Urine Negative (Negative); Clarity CLEAR (Clear); Glucose, Urine (Dipstick) Negative (Negative); Leukocyte Negative (Negative); Nitrite Negative (Negative); Protein, Urine (Dipstick) Negative (Neg-Trace); Specific Gravity, Urine 1.017 (1.002-1.036); Urobilinogen 0.2 mg/dL (0.2-1.0); pH, Urine 5.5 (5.0-9.0)
[2018-07-11 13:20] LABS: Acetaminophen Less than 6.0 mcg/mL (10.0-30.0); Alcohol 347 mg/dL (Less than 10); Salicylate Less than 8.0 mg/dL (15.0-30.0)
[2018-07-11 13:22] LABS: ALT (SGPT) 40 U/L (8-55); AST (SGOT) 51 U/L (5-34); Albumin 4.2 g/dL (3.5-5.0); Alkaline Phosphatase 68 U/L (40-150); Anion Gap 19 mmol/L (10-20); BUN (Urea Nitrogen) 13 mg/dL (8.9-20.6); Bilirubin, Total 0.2 mg/dL (0.2-1.2); CK (CPK) 456 U/L (30-200); Calc. Creatinine Clearance 0 mL/min (70-130); Calcium 9.3 mg/dL (7.8-10.44); Carbon Dioxide 22 mmol/L (22-29); Chloride 107 mmol/L (98-107); Estimated GFR-MDRD Greater than 90; Globulin 3.8 g/dL (2.4-3.5); Glucose 111 mg/dL (70-105); Potassium 3.7 mmol/L (3.5-5.1); Sodium 144 mmol/L (136-145)
[2018-07-11 13:32] LABS: Amphetamine Not Detected (NotDetected); Barbiturates Screen Not Detected (NotDetected); Benzodiazepine Screen Not Detected (NotDetected); Cocaine Metabolite Screen Not Detected (NotDetected); Medtox Control Line Valid? VALID (VALID); Medtox Reader # READER 1; Methadone Not Detected (NotDetected); Methamphetamine Not Detected (NotDetected); Opiate Screen Not Detected (NotDetected); Oxycodone Screen Not Detected (NotDetected); Phencyclidine (PCP) Not Detected (NotDetected); THC/Cannabinoid Screen Not Detected (NotDetected); Tricyclic Screen Not Detected (NotDetected)
[2018-07-11] MEDS ORDERED: traZODone HCl 50 MG TAB ONE (23:07)
[2018-07-12] MEDS ORDERED: Multivitamins, Adult 10 ML, Thiamine HCl 100 MG, Folic Acid 1 MG in Dextrose 5 %-0.45 %... IV SCH (02:00)
[2018-07-12] MEDS ORDERED: Lorazepam 2 MG/ML VIAL ONE ×2 (02:08→05:09)
== END 2018-07-12 05:15 ==
LOC: ERS 12:21
DX: F10.239 Alcohol dependence with withdrawal, unspecified (principal); Y90.8 Blood alcohol level of 240 mg/100 ml or more; I10 Essential (primary) hypertension; F41.9 Anxiety disorder, unspecified; F32.9 Major depressive disorder, single episode, unspecified; F43.10 Post-traumatic stress disorder, unspecified; F17.220 Nicotine dependence, chewing tobacco, uncomplicated
CPT/HCPCS: 36415; 80053; 80306; 80307; 81003; 82550; 84443; 85025; 96361; 96365; 96366; 96375; 96376; J2060; J3411; J7042

== ENCOUNTER 2018-11-10 18:17 | Emergency (ER) | payer OTHER ==
[2018-11-10] MEDS ORDERED: Morphine 4 MG/ML VIAL ONE (19:03)
[2018-11-10] MEDS ORDERED: Morphine 2 MG/ML SYRINGE ONE (19:03)
[2018-11-10] MEDS ORDERED: Ondansetron ODT 4 MG TAB ONE (19:04)
[2018-11-10] MEDS ORDERED: Lidocaine 1% w/Epinephrine 1:100K 20 ML VIAL ONE (19:04)
--- NOTE | 2018-11-10 19:25 | RAD ---
TWO VIEWS LEFT ELBOW: 11/10/18 HISTORY: Patient fell on piece of board with nails. AP and lateral views left elbow obtained. Two out of the three screws in the board appeared to be impaled into the patient's soft tissues. No osseous abnormality seen in the left elbow. IMPRESSION: Two out of the three screws in the board appeared to be impaled in the medial aspect of the left fore arm soft tissues. No underlying bony abnormality seen. POS: [facility]
--- NOTE | 2018-11-10 20:15 | RAD ---
TWO VIEWS LEFT ELBOW: 11/10/18 HISTORY: Foreign body removal. AP and lateral views of the left elbow demonstrates removal of the radiopaque screws which were embed ded in the soft tissues. No other abnormality seen. IMPRESSION: No visible evidence of radiopaque foreign body is seen. POS: [facility]
[2018-11-10] MEDS ORDERED: Bacitracin Zinc 1 Packet ONE (20:22)
[2018-11-10] MEDS ORDERED: cefTRIAXone\\ROCEPHIN 1 GM VIAL ONE (21:21)
[2018-11-10] MEDS ORDERED: HYDROcodone/Acetaminophen 10/325 mg Tablet ONE (21:21)
[2018-11-10] MEDS ORDERED: Lidocaine 1% (PF) 30 ML VIAL ONE (21:21)
== END 2018-11-10 21:19 | disposition home or self-care (01) ==
LOC: ERS 18:17
DX: S44.02XA Injury of ulnar nerve at upper arm level, left arm, initial encounter (principal); W45.8XXA Other foreign body or object entering through skin, initial encounter
CPT/HCPCS: 96372; J0696; J2001; J2270; Q0162

== ENCOUNTER 2018-11-25 21:45 | Emergency (ER) | payer OTHER ==
[2018-11-25] MEDS ORDERED: Lorazepam 2 MG/ML VIAL ONE (21:56)
[2018-11-25] MEDS ORDERED: Haloperidol Lactate 5 MG/ML VIAL ONE (22:00)
--- NOTE | 2018-11-25 22:14 | CT ---
Head CT without contrast 11/25/2018: HISTORY: Trauma and Altered mental status TECHNIQUE: Axial CT imaging at 5 mm intervals from vertex through skull base without contrast FINDINGS: Imaged paranasal sinuses and mastoid air cells well-aerated. No displaced calvarial fractur e. No intracranial hemorrhage, midline shift, mass effect, or ventricular enlargement. IMPRESSION: No acute findings.
[2018-11-25 22:31] LABS: #Basophils 0.1 thou/uL (0.0-0.2); #Eosinphils 0.1 thou/uL (0.0-0.7); #Lymphocytes 3.3 thou/uL (1.20-3.40); #Monocytes 0.6 thou/uL (0.11-0.59); #Neutrophils 3.8 thou/uL (1.40-6.50); %Basophils 1.2 % (0.0-1.0); %Eosinophils 1.1 % (0.0-10.0); %Lymphocytes 41.8 % (21.0-51.0); %Monocytes 7.1 % (0.0-10.0); %Neutrophils 48.7 % (42.0-75.0); Hemoglobin 14.5 g/dL (14.0-18.0); Mean Corpuscular HGB CONC 34.3 g/dL (32.0-36.0); Mean Corpuscular Hemoglobin 30.2 pg (27.0-31.0); Mean Corpuscular Volume 88.2 fL (78.0-98.0); Mean Platelet Volume 7.1 fL (7.4-10.4); Platelet Count 301 thou/uL (130-400); RBC Distribution Width 12.1 % (11.5-14.5); Red Blood Cell (RBC) Count 4.78 mill/uL (4.70-6.10); White Blood Cell (WBC) Count 7.8 thou/uL (4.8-10.8)
[2018-11-25 22:53] LABS: ALT (SGPT) 16 U/L (8-55); AST (SGOT) 21 U/L (5-34); Acetaminophen Less than 6.0 mcg/mL (10.0-30.0); Albumin 4.3 g/dL (3.5-5.0); Alcohol 353 mg/dL (Less than 10); Alkaline Phosphatase 74 U/L (40-150); Anion Gap 18 mmol/L (10-20); BUN (Urea Nitrogen) 12 mg/dL (8.9-20.6); Bilirubin, Total 0.4 mg/dL (0.2-1.2); Calc. Creatinine Clearance 0 mL/min (70-130); Calcium 8.8 mg/dL (7.8-10.44); Carbon Dioxide 26 mmol/L (22-29); Chloride 105 mmol/L (98-107); Estimated GFR-MDRD Greater than 90; Globulin 3.2 g/dL (2.4-3.5); Glucose 110 mg/dL (70-105); Potassium 3.6 mmol/L (3.5-5.1); Protein, Total 7.5 g/dL (6.0-8.3); Salicylate Less than 8.0 mg/dL (15.0-30.0); Sodium 145 mmol/L (136-145)
[2018-11-26 01:01] LABS: Bilirubin Negative (Negative); Blood, Urine Negative (Negative); Clarity CLEAR (Clear); Glucose, Urine (Dipstick) Negative (Negative); Leukocyte Negative (Negative); Nitrite Negative (Negative); Protein, Urine (Dipstick) Trace mg/dL (Neg-Trace); Specific Gravity, Urine 1.022 (1.002-1.036); Urobilinogen 0.2 mg/dL (0.2-1.0); pH, Urine 5.5 (5.0-9.0)
[2018-11-26 01:15] LABS: Amphetamine Not Detected (NotDetected); Barbiturates Screen Not Detected (NotDetected); Benzodiazepine Screen Detected (NotDetected); Cocaine Metabolite Screen Not Detected (NotDetected); Medtox Control Line Valid? VALID (VALID); Medtox Reader # READER 4; Methadone Not Detected (NotDetected); Methamphetamine Not Detected (NotDetected); Opiate Screen Not Detected (NotDetected); Oxycodone Screen Not Detected (NotDetected); Phencyclidine (PCP) Not Detected (NotDetected); THC/Cannabinoid Screen Not Detected (NotDetected); Tricyclic Screen Not Detected (NotDetected)
[2018-11-26] MEDS ORDERED: Lorazepam 2 MG/ML VIAL ONE ×2 (02:25→05:11)
[2018-11-26] MEDS ORDERED: Haloperidol Lactate 5 MG/ML VIAL ONE (02:25)
[2018-11-26] MEDS ORDERED: diphenhydrAMINE 50 MG/ML VIAL ONE (02:25)
[2018-11-26] MEDS ORDERED: chlordiazePOXIDE HCl 25 MG CAP ONE (04:12)
[2018-11-26] MEDS ORDERED: Multivitamins, Adult 10 ML, Thiamine HCl 100 MG, Folic Acid 1 MG in Dextrose 5 %-0.45 %... IV SCH (05:00)
== END 2018-11-26 16:10 ==
LOC: ERS 21:45
DX: F10.129 Alcohol abuse with intoxication, unspecified (principal); R45.1 Restlessness and agitation; R45.850 Homicidal ideations; F43.10 Post-traumatic stress disorder, unspecified; F41.9 Anxiety disorder, unspecified; F32.9 Major depressive disorder, single episode, unspecified; F17.220 Nicotine dependence, chewing tobacco, uncomplicated; Z79.899 Other long term (current) drug therapy
CPT/HCPCS: 36415; 70450; 80053; 80306; 80307; 81003; 82550; 84443; 84484; 85025; 93005; 96365; 96366; 96372; 96375; 96376; J1200; J1630; J2060; J3411; J7042